=== PATIENT | male | born 1945 | race Caucasian/White ===

== ENCOUNTER 2017-01-21 11:29 | Inpatient (IN) | payer OTHER, MEDICARE ==
--- NOTE | ~2017-01-21 | HP ---
History And Physical [facility] [address] [place]. [address] NAME: SERGIO ROSARIO : 47 STATUS : ADM IN [facility]#: [id number] AGE: 71 ADM/REG DATE : 01/21/17 MR#: [id number] REPORT SERV DATE: 01/21/17 DICTATED BY: NAOMI MATHIS DATE: 01/21/17 REPORT STATUS : Draft TRANSCRIBED BY: MODL DATE: 01/21/17 DATE OF ADMISSION: 01/21/2017 This is a 71-year-old male, who presented to [facility] because of nausea, vomiting, and abdominal pain started yesterday at 4 a.m. The patient reported that his symptoms started this morning at 4 a.m., he vomited three or four times just mostly bile and he was having severe abdominal pain in the whole abdomen. After he came to the emergency room and was given narcotics, initially morphine and then Dilaudid, his pain improved. He denies any chest pain. No shortness of breath. No fever. No headaches. He did not have any constipation or diarrhea. He had a bowel movement yesterday. All 14 systems reviewed and are negative except what is stated in the history of present illness. PAST MEDICAL HISTORY: The patient reported that he had gallbladder surgery on December [address] Rory Spivey at [facility] and since that time, he was having cold-like symptoms. He had a flu shot. He was having mild cough, but the symptoms of pain and nausea started this morning at 4 a.m. His other medical problems include history of polycythemia vera, hypertension, COPD, history of rheumatoid arthritis. He has also gastroesophageal reflux disease. His primary care physician is Dr. Nena Judge at the [facility]. He denies any history of diabetes. No thyroid problems. No history of heart attacks. No strokes. PAST SURGICAL HISTORY: Includes gallbladder surgery on December 05 at [facility] as well as it includes history of appendectomy in 1979. ALLERGIES: NO KNOWN DRUG ALLERGIES. SOCIAL HISTORY: He quit smoking six years ago, used to smoke 1-1/2 to 2 packs a day. He uses alcohol; according to the patient, he says socially 2-3 drinks, maybe twice or three times a week, mostly [place]. No recreational drug use. He lives with his . He has children and grandchildren. FAMILY HISTORY: Mother suddenly, she was healthy before. He does not know what medical problems caused her , she was old. Father had from a duodenal ulcer. HOME MEDICATIONS: Lisinopril, hydroxyurea, calcium, baby aspirin, vitamins, cholesterol medicine, and naproxen which he takes regularly. Pharmacist is going to verify home medication list. PHYSICAL EXAMINATION: GENERAL: Overweight male not in acute distress, resting quietly. VITAL SIGNS: Blood pressure 143/74, temperature 97.8, heart rate 86, respiratory rate 24, oxygen saturation 92% on room air. HEENT: Head atraumatic, normocephalic. Conjunctivae clear. Pupils are equal, reactive to History And Physical [address] [address] NAME: SERGIO ROSARIO : 47 STATUS : ADM IN [facility]#: [id number] AGE: 71 ADM/REG DATE : 01/21/17 MR#: [id number] REPORT SERV DATE: 01/21/17 DICTATED BY: NAOMI MATHIS DATE: 01/21/17 REPORT STATUS : Draft TRANSCRIBED BY: MAX DATE: 01/21/17 light and accommodation. Extraocular muscles are intact. NECK: Supple. Trachea is midline. No supraclavicular or cervical lymphadenopathy. LUNGS: Diminished breath sounds bilaterally. Decreased respiratory effort. CARDIOVASCULAR SYSTEM: Regular rate and rhythm. Point of maximal impulse not displaced. ABDOMEN: Soft. Diminished bowel sounds. There is mild tenderness to palpation in the abdomen diffusely mostly in the mid abdominal area. There is no guarding. No rebound. EXTREMITIES: No clubbing, cyanosis, or edema. SKIN: Normal color and turgor. PSYCHIATRIC: Normal mood and affect. NEUROLOGICAL: Awake alert, oriented to time, place, and person. Muscle strength is 5/5 bilaterally in upper and lower extremities. LABORATORY RESULTS: Sodium 137, potassium 4.7, chloride 98, carbon dioxide 30, BUN 31, creatinine 1.66. Blood sugar 175. Total bilirubin 3.4, alkaline phosphatase 168, ALT 664, AST 723, lipase 95785. White count 7.1, hemoglobin 15.2, hematocrit 44.2, and a platelet count of 181. UA is ordered by emergency room physician, but currently pending. CT of the abdomen without contrast done in the emergency room showed prominent peripancreatic stranding concerning for acute pancreatitis. No organizing peripancreatic collecting abscess seen. There is also some stranding surrounding the duodenum likely secondary inflamed with primary duodenitis less likely given the distribution of edema. Status post cholecystectomy with very minimal trace fluid in the gallbladder fossa likely representing expected postsurgical change in bilateral renal and right hepatic cyst. There is some nodular consolidation in the posterior basilar right lower lobe measuring up to 10-19 mm, suspect this is infectious inflammatory given its appearance, however suggest followup CT scan of the chest in 3 months for further evaluation. Chest x-ray, which was done today did not show any acute cardiopulmonary process. The EKG which was done also in the emergency room showed normal sinus rhythm with a rate of 80. ASSESSMENT AND PLAN: 1. This is a very pleasant 71-year-old male, who presented with nausea, vomiting, and a picture is consistent with acute pancreatitis. His lipase level is very high and taking into consideration his elevated AST and ALT level as well as elevated bilirubin level, I am highly suspicious for gallstone-induced pancreatitis. The patient had gallbladder surgery on December 05. Still there is a possibility of acute gallstone pancreatitis. Emergency room physician Dr. Diaz initially spoke with the patient's surgeon, Dr. Rory Spivey who recommended hospitalist to admit him and consult GI as well as he recommended MRCP to rule out gallstone pancreatitis. We are going to start him on IV fluid hydration as well as we will do symptomatic control of pain with intravenous Dilaudid. We will put him on Protonix for his gastroesophageal reflux disease and we will also cover him with antibiotics intravenously. 2. I will also order fractionated bilirubin level on this patient and we will check his serum amylase and lipase in the morning. 3. Questionable consolidation in the right lower lung. These could be just fluid effusion or could be related to his gallstone-induced pancreatitis. We will give him breathing treatments and antibiotics, Levaquin will help with this as well. 4. Mild acute kidney injury with creatinine being 1.6. We will continue IV fluid hydration and I told the patient that he should not use any nonsteroidal History And Physical [address] [place]. [address] NAME: SERGIO ROSARIO Noemi : 47 STATUS : ADM IN [facility]#: [id number] AGE: 71 ADM/REG DATE : 01/21/17 MR#: [id number] REPORT SERV DATE: 01/21/17 DICTATED BY: NAOMI MATHIS DATE: 01/21/17 REPORT STATUS : Draft TRANSCRIBED BY: MAX DATE: 01/21/17 antiinflammatory. 5. History of alcohol abuse. The patient said that he drinks socially two or three times a week, 2 or 3 drinks. He never had a withdrawal problems. We will check his folate level and we will give him IV thiamine. The patient is assigned to Dr. Page Epps to see tomorrow morning as well as Dr. Joya and Dr. aNir partner of Dr. Rory Spivey will be consulted. /MAX Naomi Mathis M.D. / [id number] CC: Stalin Judge MD
--- NOTE | ~2017-01-21 | CN ---
Consultation Report [facility] [address] [place]. [address] NAME: SERGIO ROSARIO : 47 STATUS : ADM IN [facility]#: [id number] AGE: 71 ADM/REG DATE : 01/21/17 MR#: [id number] REPORT SERV DATE: 01/22/17 DICTATED BY: DAX RAM IV DATE: 01/22/17 REPORT STATUS : Draft TRANSCRIBED BY: MAX DATE: 01/22/17 CRITICAL CARE CONSULT DATE OF CONSULTATION: 01/22/2017 REQUESTING PHYSICIAN: Page Epps M.D. REASON FOR REQUEST: Severe pancreatitis with impending hypercapnic-hypoxemic respiratory failure. HISTORY OF PRESENT ILLNESS: History was obtained from the patient and the records. Mr. Rosario is a 71-year-old male with a history of COPD, hypertension, polycythemia vera, GERD, rheumatoid arthritis status post recent laparoscopic cholecystectomy with acute onset of abdominal pain with findings of pancreatitis, who was moved to the ICU for respiratory distress and worsening abdominal pain. The patient underwent a laparoscopic cholecystectomy on December 04 and . He clinically did well until Friday night when he developed acute onset of periumbilical abdominal pain associated with nausea and vomiting. He has not had a bowel movement in several days. These are associated with chills. There were no fevers, sweats, cough, sputum production, or hemoptysis. The patient presented to the emergency room, where a CT scan demonstrated some peripancreatic stranding consistent with inflammation. He was admitted to the floor and initially given hydration. The patient reportedly had increasing respiratory distress, for which a blood gas was obtained which demonstrated some hypercapnia. Because of concern about the worsening respiratory status and pancreatitis, the hospitalist service requested transfer to the ICU. Upon presentation, the patient was on BiPAP. There were no major stress. He is on 40% FiO2. His fluids have been stopped and was given a diuretic because of decreased urinary output. He is not at home on bronchodilator medications nor is he on supplemental oxygen. He does continue to drink alcohol, though by his report, only six drinks over the last week with two ounces per drink. There was no previous history of known retained gallstones following his surgery. The patient reportedly snores loudly, though is unaware of apneic episodes. Sleep is nonrestorative, and complains of sedentary hypersomnolence. Never undergone evaluation for obstructive sleep apnea. PULMONARY HISTORY: Remarkable for no history of childhood asthma. He carries a diagnosis of adult COPD. He has had pneumonia in the past. He has a 50+ pack-year smoking history, having quit six years ago. 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 He is reportedly up to date on both seasonal Influenza vaccine, as well as the Pneumovax. PAST MEDICAL HISTORY: 1. COPD. Consultation Report [place] [id number] [facility] [place]. [address] NAME: SERGIO ROSARIO : 47 STATUS : ADM IN [facility]#: [id number] AGE: 71 ADM/REG DATE : 01/21/17 MR#: [id number] REPORT SERV DATE: 01/22/17 DICTATED BY: DAX RAM IV DATE: 01/22/17 REPORT STATUS : Draft TRANSCRIBED BY: MAX DATE: 01/22/17 2. Hypertension. 3. Polycythemia vera. 4. Reflux disease. 5. Rheumatoid arthritis. 6. Pancreatitis. SURGERIES: 1. Cholecystectomy. 2. Appendectomy. ALLERGIES: NO KNOWN DRUG ALLERGIES. CURRENT MEDICATIONS: The patient is on calcium 500 mg twice a day, DuoNeb every six hours, folic acid 1 mg daily, guaifenesin 600 mg twice a day, heparin 5000 units q.8 hours, Hydrea 500 mg twice a day, Levaquin 750 mg daily, Flagyl 500 mg twice a day, Protonix 40 mg b.i.d., thiamine 100 mg p.o. daily, and B12 daily. SOCIAL HISTORY: Remarkable for the previous tobacco use as above. Current alcohol use as noted. No illicit drug use. He is and has four sons. FAMILY HISTORY: Remarkable for mother who in a fire. Father who had COPD, hypertension, and duodenal ulcer disease. PHYSICAL EXAMINATION: GENERAL: This is an obese, elderly male, actually appearing younger than stated age, in mild respiratory distress after removal of the BiPAP. VITAL SIGNS: Temperature is 98, pulse is 90, respiratory rate is 24, saturation 94% on 4 L via nasal cannula. Blood pressure is 101/62. HEENT: normocephalic, atraumatic. Extraocular movements are intact. Pupils react to light. Sclerae and conjunctivae normal. He has a nasal cannula currently in place. He has a Mallampati 3 airway with narrowing of the posterior pharyngeal space. NECK: Without any palpable lymphadenopathy or thyromegaly. CHEST: The patient has bibasilar inspiratory crackles. There is an inspiratory and expiratory rhonchi with a prolonged expiratory phase. No current wheezes are noted. CARDIOVASCULAR: The patient has a distant regular S1, S2 with no clear murmur, S3, S4. Carotid upstrokes are 1+. No obvious bruit. Jugular venous pulsations are difficult to elicit secondary to body habitus. He has decreased peripheral pulses. ABDOMEN: Surgical scars are noted. Protuberant. There are hypoactive bowel sounds. There is diffuse tenderness particularly in the periumbilical region. There is no palpable hepatosplenomegaly or masses. EXTREMITIES: Demonstrate chronic venous stasis changes. There is trace to 1+ pretibial edema. There is no cyanosis, clubbing, or palpable cords. NEUROLOGIC: The patient moves all extremities. Strength is 5/5 and sensation is intact to light touch. Consultation Report [place] [id number] [facility] [place]. [address] NAME: SERGIO ROSARIO : 47 STATUS : ADM IN [facility]#: [id number] AGE: 71 ADM/REG DATE : 01/21/17 MR#: [id number] REPORT SERV DATE: 01/22/17 DICTATED BY: DAX RAM IV DATE: 01/22/17 REPORT STATUS : Draft TRANSCRIBED BY: MAX DATE: 01/22/17 LABORATORY DATA: Chest x-ray demonstrates hypoventilatory effort and bibasilar atelectasis. Chest CT scan demonstrates a nodular density at the right base likely inflammatory atelectatic, however, will need to be followed with complete chest CT scan. There is, on CT scan, stranding around the duodenum and pancreas likely most consistent with pancreatitis. CBC: Hemoglobin 14.2, hematocrit 42.8, platelet count was 276,000, and white blood cell count is 30.1. INR is 1.2. Chemistries: Sodium 137, potassium 5.0, chloride 102, bicarb 25, BUN 37, creatinine 1.87, glucose of 138. Lactate is 3.12. Calcium is 6.9. Ionized calcium is 3.76. Bilirubin has gone from 3.4-0.8, alkaline phosphatase from 158 to 111, ALT from 664 to 370, AST from 723 to 188. Amylase was 700. Lipase was 24,615, now down to 4538. Folic acid and B12 were both normal. Blood gas was pH 7.28, pCO2 of 58, pO2 of 63. Urinalysis was unremarkable. ASSESSMENT AND PLAN: 1. Gastrointestinal. Liver functions have markedly improved, so this is most consistent with a passed stone. Magnetic resonance cholangiopancreatography has been ordered. Protonix will be continued. We will follow the transaminases, amylase, and lipase. N.p.o. for now. Dulcolax suppository with no bowel movement. 2. Respiratory. The patient likely has significant chronic obstructive pulmonary disease. We will add Pulmicort and Brovana nebulizers with DuoNeb q.4 hours while awake and q.4 hours as needed. The EzPAP and bilevel positive airway pressure will be changed to 15/7 with a rate of 10 to be used for distress. The patient likely has obstructive sleep apnea and warrants an outpatient sleep evaluation. Oxygen will be titrated to maintain saturations in the 90% to 94% range. The nodules likely inflammatory or atelectatic, however, does not require with his smoking history, outpatient CT scan. 3. Renal. The patient may have acute on chronic renal insufficiency. We will replace the patient's magnesium with 2 g calcium will be replaced per protocol. I will watch the creatinine with hydration. I would recommend a Tello to the patient, particularly to monitor output. If he is unable urinate, phosphate level will be obtained. 4. Infectious disease. I see no reason for antibiotics at this time, so we will discontinue the Levaquin and Flagyl. Procalcitonin level will be obtained. Doubt this is infection. Clarify gastrointestinal prophylactic medication as needed. 5. Hematologic. Heparin subcutaneous for deep vein thrombosis prophylaxis and pneumatic compression stockings. 6. Neurologic. Dilaudid for pain. Zofran p.r.n. Thiamine will be made IV and 200 mg daily. 7. Endocrinologic. Hemoglobin A1c insulin sliding scale has been ordered. Thyroid functions will be obtained. 8. Cardiovascular. Fluid resuscitation with 200 mL an hour. Thank you for consulting us. The patient will be moved to the ICU. We will assume primary care. Consultation Report [facility] [address] [place]. [address] NAME: SERGIO ROSARIO : 47 STATUS : ADM IN PAT#: [id number] AGE: 71 ADM/REG DATE : 01/21/17 MR#: [id number] REPORT SERV DATE: 01/22/17 DICTATED BY: DAX RAM IV DATE: 01/22/17 REPORT STATUS : Draft TRANSCRIBED BY: MODL DATE: 01/22/17 NM/MAX Dax Ram IV, M.D. / [id number] CC: Liliana Latif MD
--- NOTE | ~2017-01-21 | IDS ---
Interim Discharge Summary [facility] [address] [place]. [address] NAME: SERGIO ROSARIO : 47 STATUS : ADM IN [facility]#: [id number] AGE: 71 ADM/REG DATE : 01/21/17 MR#: [id number] REPORT SERV DATE: 01/25/17 DICTATED BY: DAX RAM IV DATE: 01/24/17 REPORT STATUS : Draft TRANSCRIBED BY: MAX DATE: 01/24/17 ADMISSION DATE: 01/21/2017 DISCHARGE DATE: Date of transfer to the ICU was 01/22/2017. Date of transfer back to the hospitalist service was 01/24/2017. DIAGNOSES AT TIME OF TRANSFER: 1. Severe pancreatitis. 2. Hypercapnic/hypoxemic respiratory failure. 3. COPD. 4. Acute kidney injury, improved. 5. Polycythemia vera, on Hydrea. 6. Reflux disease. 7. Electrolyte abnormalities being corrected. CONSULTANTS: There were no new consultants though Gastroenterology continued to follow the patient throughout the hospital course. PROCEDURES: The patient underwent MRCP placement as well as a PICC line placement for transient hypotension. MEDICATIONS: Include Brovana unit dose twice a day, Pulmicort 1 mg twice a day, calcium 500 mg twice a day, DuoNeb q.4 hours while awake and q.4 hours as needed, folic acid 1 mg daily, heparin 5000 units q.8 hours, Hydrea 500 mg twice a day, Protonix 40 mg twice a day, and B12. HOSPITAL COURSE: The patient was admitted to the hospitalist service on the with pancreatitis. The patient developed abdominal pain, the day prior to presentation after having had a laparoscopic cholecystectomy in December. The patient had markedly elevated transaminases as well as amylase and lipase. Because of the patient's increase in respiratory distress and concern about ARDS, the patient was moved to the ICU. The patient transiently required BiPAP; however, that was discontinued. Oxygen saturations have been adequate between 4 and 6 L. The patient initially had IV fluids discontinued and given diuretic; however, IV hydration was resumed at initially 250 mL an hour with lactated Ringer's. The patient initially had minimal urine output with a rise in the creatinine to a high of 2.65; however, with further hydration, that has improved, now down to 1.48 with excellent urine output. He has had difficulties with predominantly low magnesium, low ionized calcium, and low phos which has been replaced. Transaminases have dropped precipitously and have now normalized except for a persistently elevated ALT of 116. The patient had decreased abdominal discomfort with the intermittent use of Dilaudid. It was felt that he was stable for transfer back to the floor. BiPAP has been discontinued. He will be sent back to the hospitalist service. Interim Discharge Summary [address] [place]. [address] NAME: SERGIO ROSARIO : 47 STATUS : ADM IN [facility]#: [id number] AGE: 71 ADM/REG DATE : 01/21/17 MR#: [id number] REPORT SERV DATE: 01/25/17 DICTATED BY: DAX RAM IV DATE: 01/24/17 REPORT STATUS : Draft TRANSCRIBED BY: MAX DATE: 01/24/17 JACK/MAX Dax Ram IV, M.D. / [id number] CC: Liliana Latif MD
--- NOTE | ~2017-01-21 | DS ---
Discharge Summary [facility] [address] [place]. [address] NAME: SERGIO ROSARIO : 47 STATUS : ADM IN PAT#: [id number] AGE: 71 ADM/REG DATE : 01/21/17 MR#: [id number] REPORT SERV DATE: 01/30/17 DICTATED BY: ILYA SCOTT DATE: 01/29/17 REPORT STATUS : Draft TRANSCRIBED BY: MODL DATE: 01/29/17 ADMISSION DATE: 01/21/2017 DISCHARGE DATE: DISCHARGE DIAGNOSES: 1. Acute severe pancreatitis. 2. Status post cholecystectomy. 3. Hypoxic hypercapnic respiratory failure. 4. Acute exacerbation of chronic obstructive pulmonary disease. 5. Acute kidney injury, now resolved. 6. Polycythemia vera. 7. Gastroesophageal reflux disease. 8. Multiple electrolyte and metabolic abnormalities that have been corrected. 9. Elevation in liver function studies which have now normalized. 10.Obesity. 11.Hypertension. CONSULTANTS DURING THIS HOSPITALIZATION: Gastroenterology and Critical Care Pulmonology. INVASIVE PROCEDURES DONE DURING THIS HOSPITALIZATION: None. BRIEF HISTORY OF PRESENT ILLNESS: The patient is a 71-year-old male who recently underwent cholecystectomy and then presented with abdominal pain and developed pancreatitis, so he was admitted. For detailed history and physical exam, please see note dictated by Dr. Marci Harris on 01/21/2017. HOSPITAL COURSE: After being admitted to the hospital, this patient's condition worsened, had to be transferred to the intensive care unit. Please refer to interim summary dictated by Dr. Washington Ram on 01/25/2017. This patient was transitioned to the floor on 01/25/[address] Mckeon took over this patient's care. At that time, this patient was doing well. Once we started feeding him and advancing his diet, he had more pain, so GI was asked to continue seeing him again. This patient continued to improve. We have tapered down his diet back to clear liquid diet. Within the last 24 hours, I have advanced his diet again to full liquid. He is tolerating that, he still complains of significant back pain. This patient also remained on O2. We have continued his nebulized treatments, and we will switch him to inhaled long-acting beta agonist with corticosteroids in the home setting. This patient because of his obesity and hypoxic hypercapnic respiratory failure required O2. We have arranged that in the home setting. He is otherwise ambulatory, and he feels well enough that he wants to go home and recover in the home setting. DISCHARGE DISPOSITION: Home. DISCHARGE ACTIVITY: As tolerated. DISCHARGE DIET: Low-sodium diet. Discharge Summary [place] [address] [place]. [address] NAME: SERGIO ROSARIO : 47 STATUS : ADM IN PAT#: [id number] AGE: 71 ADM/REG DATE : 01/21/17 MR#: [id number] REPORT SERV DATE: 01/30/17 DICTATED BY: ILYA SCOTT DATE: 01/29/17 REPORT STATUS : Draft TRANSCRIBED BY: MAX DATE: 01/29/17 DISCHARGE MEDICATIONS: Tums 500 mg p.o. twice daily, vitamin B12 of 500 mcg twice daily, Creon 24,000 units two caplets before each meal three times daily, Carafate 1 g q.i.d., hydralazine 25 mg p.o. twice daily, Symbicort 160/4.25 two puffs twice daily, Hydrea 500 mg twice daily, Prilosec 40 mg once before breakfast, MiraLAX one packet p.o. twice daily, aspirin 81 mg once daily, Tylenol 500 mg p.o. twice daily p.r.n. vitamin D 1000 units p.o. twice daily p.r.n. and simvastatin 20 mg once at bedtime, hydrocodone 5/325 one tablet q.6 hours p.r.n. for pain #20 with no refills given. DISCHARGE FOLLOWUP: With the [facility] for possible sleep evaluation in the outpatient setting as well. More than 35 minutes spent planning this patient's discharge, reconciling medications, writing prescriptions, discussing hospital care, and followup with the patient and documenting this discharge. OBED/MAX Ilya Scott M.D. / [id number] CC: Liliana Genao MD William Cockerham, M.D. Anthony Sims, M.D.
--- NOTE | ~2017-01-21 | CN ---
Consultation Report [facility] [address] [place]. [address] NAME: SERGIO ROSARIO : 47 STATUS : ADM IN [facility]#: [id number] AGE: 71 ADM/REG DATE : 01/21/17 MR#: [id number] REPORT SERV DATE: 01/27/17 DICTATED BY: VONDA SPANN DATE: 01/26/17 REPORT STATUS : Draft TRANSCRIBED BY: MODL DATE: 01/26/17 SURGICAL CONSULTATION DATE OF CONSULTATION: 01/21/2017 REASON FOR CONSULT: Gallstone pancreatitis. HISTORY OF PRESENT ILLNESS: The patient is a 71-year-old male, with approximately 36 hours ago, began to have abdominal pain with intermittent vomiting. The vomiting had been bilious. He is status post a laparoscopic cholecystectomy with Dr. Rory Spivey on 12/05/2016. The patient reports that he has had multiple bouts of gallbladder problems prior to this. He reports the gallbladder was taken out because of multiple bouts of problems having gallstones in addition to this. REVIEW OF SYSTEMS: A comprehensive review of systems conducted and was negative for any neurological symptoms. However, the patient does have significant medical problems which were listed in his past medical history. LABORATORY DATA: Sodium 137, potassium 4.7, chloride 98, CO2 of 30, BUN 31, creatinine 1.66, glucose 175. Alk phos , T-bilirubin 3.4, ALT 664, AST 723, lipase 24,615. White count 7.1, hemoglobin 15, hematocrit 44, platelets 181. IMAGING: CT abdomen and pelvis shows fat stranding surrounding the pancreas and significant pancreatic edema and inflammation. PHYSICAL EXAMINATION: VITAL SIGNS: Blood pressure 124/64, pulse 88, respirations 18, T-max 98.4. GENERAL: The patient is awake, alert, and oriented. He is in moderate distress. HEENT: Normocephalic, atraumatic. NECK: No cervical nodes are palpated. RESPIRATIONS: Mild increased work of breathing. Mildly tympanic secondary to the patient's COPD. Distant breath sounds. HEART: Mildly tachycardic. Distant heart sounds. No murmurs appreciated at this time. ABDOMEN: Abdomen mildly is distended. No peritoneal sign. Tender to palpation in the epigastric area. EXTREMITIES: 2+ radial pulses bilaterally. Mild 1+ pitting edema in the lower extremities. NEURO: Cranial nerves II through XII appeared to be grossly intact. PAST MEDICAL HISTORY: Includes polycythemia vera, hypertension, COPD, rheumatoid arthritis, and gastroesophageal reflux disease. PAST SURGICAL HISTORY: Includes laparoscopic cholecystectomy back on 12/05/2016 as well as an appendectomy in the past. Consultation Report [address] [place]. [address] NAME: SERGIO ROSARIO : 47 STATUS : ADM IN [facility]#: [id number] AGE: 71 ADM/REG DATE : 01/21/17 MR#: [id number] REPORT SERV DATE: 01/27/17 DICTATED BY: VONDA SPANN DATE: 01/26/17 REPORT STATUS : Draft TRANSCRIBED BY: MAX DATE: 01/26/17 FAMILY HISTORY: Negative for biliary cancers. SOCIAL HISTORY: The patient is a former smoker. He has occasional alcohol. No drug use. MEDICATIONS: Include lisinopril, hydroxyurea, calcium, aspirin, and naproxen. ALLERGIES: THE PATIENT HAS NO KNOWN DRUG ALLERGIES. ASSESSMENT: The patient is a 71-year-old male with pancreatitis, status post laparoscopic cholecystectomy, with an acute kidney injury as well. PLAN: Plan will be to aggressively rehydrate this patient. He has an acute on chronic kidney injury which needs significant intravascular volume expansion. In addition, this patient is status post laparoscopic cholecystectomy with the possibility of retained common bile duct stone. For this, the patient will require an MRCP which has already been started been ordered. It is also possible that the patient's prior gallbladder episodes were actually pancreatitis. This would mean that the patient has recurrent pancreatitis which he is being treated again with symptomatic relief as well as IV fluid rehydration. I do not feel that the patient's pancreatitis is infected at this time and did not likely require IV antibiotics. Surgical consultation will be available as needed, but there is no surgical indication at this time. YURY/MAX Lucho Spann M.D. / [id number] CC: Liliana Marvin MD
--- NOTE | ~2017-01-21 | DS ---
Discharge Summary [facility] [address] [place]. [address] NAME: SERGIO ROSARIO : 47 STATUS : DIS IN PAT#: [id number] AGE: 71 ADM/REG DATE : 01/21/17 MR#: [id number] REPORT SERV DATE: 01/30/17 DICTATED BY: ILYA SCOTT DATE: 01/30/17 REPORT STATUS : Draft TRANSCRIBED BY: MODL DATE: 01/30/17 ADMISSION DATE: 01/21/2017 DISCHARGE DATE: 01/30/2017 ADDENDUM: HOSPITAL COURSE: After assessing the patient in the late afternoon yesterday, this patient felt very anxious, he was shaking, and he did not feel that he could go home due to the weather and could not come back if he needed to come back. He has not had any further issues through the night. We did give him a very small dose of Xanax as needed for his anxiety and that seems to have helped. Today, he is resting in his recliner, feels well enough, tolerated diet, but did not like the hospital food, and he feels that he is ready to go home. No other changes to his medications were made from the previous day's discharge. OBED/MAX Ilya Scott M.D. / [id number] CC: Liliana Geano MD
--- NOTE | ~2017-01-21 | CN ---
Consultation Report [facility] [address] [place]. [address] NAME: SERGIO ROSARIO : 47 STATUS : ADM IN [facility]#: [id number] AGE: 71 ADM/REG DATE : 01/21/17 MR#: [id number] REPORT SERV DATE: 01/22/17 DICTATED BY: ALFONSO BERRIOS DATE: 01/22/17 REPORT STATUS : Draft TRANSCRIBED BY: MODL DATE: 01/22/17 INPATIENT CONSULT NOTE DATE OF CONSULTATION: 01/22/2017 REASON FOR CONSULTATION: Gallstone pancreatitis. HISTORY OF PRESENT ILLNESS: Mr. Rosario is a very pleasant 71-year-old male with a past medical history most significant for prior cholecystectomy and COPD, who presented to the hospital yesterday with complaints of nausea, vomiting, and abdominal pain that started the previous morning. The patient had multiple episodes of bilious vomiting and worsening of his pain. Upon presentation, the patient was noted to have unremarkable vital signs and a normal CBC with a hematocrit of 44. The patient was noted, however, to have elevated BUN of 31, creatinine of 1.6, and an elevated total bilirubin of 3.4, alkaline phosphatase of 168, ALT of 664, AST of 723, and a lipase of 24,615. The patient was admitted and was started on IV fluids initially as well as antibiotics for unclear reasons. Over the course of the evening, the patient developed increasing respiratory distress and was given a dose of Bumex by report and transferred to the CCU for continuous BiPAP. GI was consulted for management of gallstone pancreatitis. REVIEW OF SYSTEMS: All systems reviewed with the patient and were negative aside from what was mentioned in the history of present illness. The patient complains persistent abdominal discomfort, but not as severe as previous. No fevers or chills. No further nausea or vomiting. His main complaint at this point is shortness of breath, which he attributes to his COPD. PAST MEDICAL HISTORY: Includes 1. Status post cholecystectomy. 2. COPD. 3. History of polycythemia vera. 4. Hypertension. 5. COPD. 6. History of rheumatoid arthritis. 7. GERD. FAMILY HISTORY: The patient has no family history of GI-related malignancy. SOCIAL HISTORY: The patient quit smoking approximately six years ago. He does not abuse alcohol, but has several drinks per week. No illicit substances. ALLERGIES: THE PATIENT HAS NO KNOWN DRUG ALLERGIES. OUTPATIENT MEDICATIONS: Include 1. Aspirin 81 mg p.o. daily. 2. Tylenol p.r.n. Consultation Report [address] [place]. [address] NAME: SERGIO ROSARIO : 47 STATUS : ADM IN PAT#: [id number] AGE: 71 ADM/REG DATE : 01/21/17 MR#: [id number] REPORT SERV DATE: 01/22/17 DICTATED BY: ALFONSO BERRIOS DATE: 01/22/17 REPORT STATUS : Draft TRANSCRIBED BY: MAX DATE: 01/22/17 3. Vitamin B12. 4. Tums twice daily. 5. Vitamin D3. 6. Lisinopril/hydrochlorothiazide tablets. 7. Hydroxyurea. 8. Naproxen. 9. Prilosec 40 mg p.o. q.a.m. 10.Zocor. PHYSICAL EXAMINATION: VITAL SIGNS: Most recent vital signs include a temperature of 98.0, with a T-max of 98.4, pulse is 94, blood pressure is 101/62, and saturating 96% on 3 L BiPAP. GENERAL INSPECTION: Reveals an elderly male, sitting in a chair, very dyspneic, and apparently uncomfortable with BiPAP on. HEENT: Head is normocephalic, atraumatic. Sclerae nonicteric. Pupils are equal and round. NECK: Supple without lymphadenopathy. HEART: Heart rate is regular with normal S1, S2. LUNGS: Sounds are clear to auscultation bilaterally with no crackles are heard. No wheezes heard either. However, airflow is a very poor bilaterally. ABDOMEN: Soft with mild to moderate tenderness to palpation in the epigastric area. No active bowel sounds were noted. EXTREMITIES: The patient had no cyanosis, clubbing, or edema. SKIN: No jaundice or rash. NEUROLOGIC: He had no gross motor deficits. PSYCHIATRIC: He was alert and oriented. Mood and affect are appropriate. Judgment appeared to be intact. LABORATORY DATA: Most recent laboratory results include an elevated lactate of 3.1. Most recent CBC showed an elevated white count of 13.1, hemoglobin of 14, hematocrit of 42.8, and a platelet count of a 176,000. Comprehensive metabolic panel demonstrated resolving LFTs with a bilirubin of 0.8, alkaline phosphatase of 111, ALT decreased down to 370, AST decreased down to 188. Lipase decreased down to 4500. Electrolytes were unremarkable. BUN was still elevated at 37, which is rising compared to last night. Creatinine is 1.87, which is also worsening. Chest x-ray was reviewed and showed question of atelectasis versus mild congestion at the bases otherwise normal. The patient did have suggestion of cardiomegaly. CT of the abdomen was reviewed personally by myself, which showed no evidence of biliary obstructions. Common bile duct was normal in diameter. Gallbladder was not present. There was suggestion of haziness around the head of the pancreas suggestion of acute pancreatitis. ASSESSMENT AND PLAN: Mr. Rosario is a pleasant 71-year-old male with no significant past medical history, who presents with complaints of nausea, vomiting, and abdominal pain and was found to have a flare of acute pancreatitis that is almost certainly biliary in origin. Consultation Report [place] [id number] [facility] [place]. [address] NAME: SERGIO ROSARIO : 47 STATUS : ADM IN [facility]#: [id number] AGE: 71 ADM/REG DATE : 01/21/17 MR#: [id number] REPORT SERV DATE: 01/22/17 DICTATED BY: ALFONSO BERRIOS DATE: 01/22/17 REPORT STATUS : Draft TRANSCRIBED BY: MODL DATE: 01/22/17 The patient has resolving LFTs, suggestion of a passed stone, although this will be confirmed with MRI at some point in the near future. We would continue monitoring LFTs for now. At the present time, I would highly recommend continued aggressive fluid resuscitation to help avoid the development of pancreatic necrosis. The patient needs continued fluids at a minimum of 150 to 200 mL an hour of either normal saline or lactated Ringer's. The patient's hematocrit and BUN need to be monitored to assure a downtrend, which would suggest adequate fluid resuscitation. At this point of the patient's hospitalization, his respiratory status should be a secondary concern with intubation for respiratory distress being a better option than an adequate fluid resuscitation and risking the development of necrosis. Thank you very much for allowing me to participate in Mr. Rosario's care. We will continue to follow along with you closely. Please call with any questions, concerns, or significant developments . BEATRIZ/MODL Alfonso Berrios MD / [id number] CC: Liliana Latif MD
[~2017-01-21 11:29] MED LIST: ALEVE220 MG PO; ASAB PO; B12250T PO; CALGLUCTAB PO; HYDREA PO; HYDROXOCOBALAMIN; PRILO PO; VITAMIN D31000 UNIT PO; ZOCOR40 PO
[2017-01-21 11:46] LABS: BASOPHILS 0 %; EOSINOPHILS 0.1 %; EOSINOPHILS ABSOLUTE 0.01 10/3/uL (0.0-0.53); HEMATOCRIT 44.2 % (40.0-51.0); HEMOGLOBIN 15.2 g/dL (13.6-17.8); IMMATURE GRANULOCYTES 0.1 %; IMMATURE GRANULOCYTES ABSOLUTE 0.01 10/3/uL (0.0-0.11); LYMPHOCYTES 7.2 %; LYMPHOCYTES ABSOLUTE 0.51 10/3/uL (0.67-4.30); MEAN CORPUS HGB CONC 34.4 g/dL (32.0-36.0); MEAN CORPUSCULAR HEMOGLOB 38.9 pg (26.0-34.0); MEAN PLATELET VOLUME 9.9 fL (9.2-13.0); MONOCYTES 3.4 %; MONOCYTES ABSOLUTE 0.24 10/3/uL (0.21-1.20); NEUTROPHILS 89.2 %; NEUTROPHILS ABSOLUTE 6.28 10/3/uL (2.02-8.40); PLATELET COUNT 181 10/3/uL (150-400); RBC DISTRIBUTION WIDTH 13.2 % (12.0-16.0); RED CELL COUNT 3.91 10/6/uL (4.7-6.1); WHITE BLOOD CELLS 7.1 10/3/uL (4.5-10.5)
[2017-01-21 11:47] LABS: MANUAL DIFF NO %
[2017-01-21 12:05] LABS: PLATELET ESTIMATE ADQ (ADEQUATE); RBC MORPHOLOGY ABN (NORMAL); STOMATOCYTES 1+ (3-10/OIF) (0-2/OIF)
[2017-01-21 12:07] LABS: ALBUMIN 3.6 G/DL (3.5-5.0); ALKALINE PHOSPHATASE 168 U/L (45-117); BUN (BLOOD UREA NITROGEN) 31 MG/DL (6-23); CALCIUM, SERUM 8.2 MG/DL (8.5-10.4); CHLORIDE, SERUM 98 MMOL/L (96-112); CO2 (CARBON DIOXIDE) 30 MMOL/L (24-34); CREATININE 1.66 MG/DL (0.70-1.30); GFR AFRICAN AMERICAN 48 ML/MIN (>=60); GFR NON AFRICAN AMERICAN 41 ML/MIN (>=60); GLOBULIN 3.5 G/DL (2.5-4.1); GLUCOSE, SERUM 175 MG/DL (60-99); POTASSIUM, SERUM 4.7 MMOL/L (3.5-5.3); SGOT(AST) 723 U/L (5-40); SGPT(ALT) 664 U/L (5-65); SODIUM, SERUM 137 MMOL/L (135-148); TOTAL BILIRUBIN 3.4 MG/DL (0-1.2); TOTAL PROTEIN 7.1 G/DL (6.0-8.5)
[2017-01-21] MEDS ORDERED: ASAB PO (13:56)
[2017-01-21] MEDS ORDERED: B12250T PO (13:57)
[2017-01-21] MEDS ORDERED: ACET500CAP PO (13:57)
[2017-01-21] MEDS ORDERED: TUMSROLL PO (13:59)
[2017-01-21] MEDS ORDERED: VITAMIN D31000 UNIT PO (14:00)
[2017-01-21] MEDS ORDERED: PRINZIDE1 TA1 PO (14:01)
[2017-01-21] MEDS ORDERED: HYDREA PO (14:01)
[2017-01-21] MEDS ORDERED: ZOCOR20 PO (14:02)
[2017-01-21] MEDS ORDERED: NAP375 PO (14:02)
[2017-01-21] MEDS ORDERED: PRILOSEC40 MG PO (14:02)
[2017-01-21 16:41] LABS: INFLUENZA A SCREEN NEGATIVE (NEGATIVE); INFLUENZA B SCREEN NEGATIVE (NEGATIVE)
[2017-01-21 17:04] LABS: ASCORBIC ACID (UR NOT ORDER) NEG (NEG); BILIRUBIN, URINE NEGATIVE (NEG); KETONE, URINE NEGATIVE (NEG); LEUKOCYTE ESTERASE(NOT OR NEG (NEG); WBC (NOT ORDERED) (RFLEX) 3 (0-5)
[2017-01-21 17:52] LABS: FOLATE 9.6 NG/ML (>5.2)
[2017-01-22 05:25] LABS: INSTRUMENT SERIAL # 8083; PCO2 (CO2 TENSION) 58 MMHG (35-45); pH 7.28 (7.37-7.43)
[2017-01-22 05:26] LABS: ALLENS TEST Pos; BE (BASE EXCESS) -1.5 MEQ/L (0 +/- 2.5); CARBOXYHEMOGLOBIN 1.3 % (0-3); DEVICE NC; HCO3 (ACTUAL BICARBONATE) 26.5 MEQ/L (23-27); HEMOBLOGIN CONTENT 15.4 G/DL (14-18); METHEMOGLOBIN 0.2 % (0-3); O2 CONTENT 19.4 VOL% (18-24); OPERATOR ID 334499; PO2 (O2 TENSION) 63 MMHG (79-93); SAMPLE Arterial
[2017-01-22 07:09] LABS: BASOPHILS 0 %; EOSINOPHILS 0 %; HEMATOCRIT 42.8 % (40.0-51.0); HEMOGLOBIN 14.2 g/dL (13.6-17.8); IMMATURE GRANULOCYTES 0.2 %; IMMATURE GRANULOCYTES ABSOLUTE 0.03 10/3/uL (0.0-0.11); LYMPHOCYTES 2.7 %; LYMPHOCYTES ABSOLUTE 0.36 10/3/uL (0.67-4.30); MEAN CORPUS HGB CONC 33.2 g/dL (32.0-36.0); MEAN CORPUSCULAR HEMOGLOB 38.5 pg (26.0-34.0); MONOCYTES 7.5 %; MONOCYTES ABSOLUTE 0.99 10/3/uL (0.21-1.20); NEUTROPHILS 89.6 %; NEUTROPHILS ABSOLUTE 11.76 10/3/uL (2.02-8.40); PLATELET COUNT 176 10/3/uL (150-400); RBC DISTRIBUTION WIDTH 13.3 % (12.0-16.0); RED CELL COUNT 3.69 10/6/uL (4.7-6.1)
[2017-01-22 07:11] LABS: MANUAL DIFF NO %; WHITE BLOOD CELLS 13.1 10/3/uL (4.5-10.5)
[2017-01-22 07:23] LABS: A/G RATIO 0.9 (0.7-1.9); CHLORIDE, SERUM 102 MMOL/L (96-112); CREATININE 1.87 MG/DL (0.70-1.30); DIRECT BILIRUBIN 0.2 MG/DL (0.0-0.4); GFR AFRICAN AMERICAN 41 ML/MIN (>=60); GFR NON AFRICAN AMERICAN 36 ML/MIN (>=60); GLOBULIN 3.5 G/DL (2.5-4.1); SGOT(AST) 188 U/L (5-40); SGPT(ALT) 370 U/L (5-65); SODIUM, SERUM 137 MMOL/L (135-148); TOTAL PROTEIN 6.5 G/DL (6.0-8.5)
[2017-01-22 07:24] LABS: BUN (BLOOD UREA NITROGEN) 37 MG/DL (6-23); CALCIUM, SERUM 6.9 MG/DL (8.5-10.4); CO2 (CARBON DIOXIDE) 25 MMOL/L (24-34); GLUCOSE, SERUM 138 MG/DL (60-99); INDIRECT BILIRUBIN(NOT ORDER) 0.6 MG/DL (0.1-0.9); TOTAL BILIRUBIN 0.8 MG/DL (0-1.2)
[2017-01-22 07:25] LABS: ALKALINE PHOSPHATASE 111 U/L (45-117)
[2017-01-22 07:29] LABS: PLATELET ESTIMATE ADQ (ADEQUATE)
[2017-01-22 09:33] LABS: INTERNATIONAL NORMAL RATI 1.2 UNITS (-); PROTIME (NOT ORD) 14.6 SEC (12.0-14.5)
[2017-01-22 10:14] LABS: FOLATE 8.6 NG/ML (>5.2)
[2017-01-22 13:46] LABS: FREE T4 1.19 NG/DL (0.76-1.46); PHOSPHORUS, SERUM 3.3 MG/DL (2.5-4.5); PROSTATIC SPECIFIC AG 1.51 NG/ML (0.0-6.5); ULTRASENSITIVE TSH 1.76 MCIU/ML (0.358-3.740)
[2017-01-22 14:02] LABS: CALCIUM IONIZED 3.83 MG/DL (3.80-4.80)
[2017-01-22 15:20] LABS: BASOPHILS 0 %; EOSINOPHILS 0 %; HEMATOCRIT 44.5 % (40.0-51.0); HEMOGLOBIN 14.4 g/dL (13.6-17.8); IMMATURE GRANULOCYTES 0.1 %; IMMATURE GRANULOCYTES ABSOLUTE 0.02 10/3/uL (0.0-0.11); LYMPHOCYTES 2.4 %; LYMPHOCYTES ABSOLUTE 0.37 10/3/uL (0.67-4.30); MEAN CORPUS HGB CONC 32.4 g/dL (32.0-36.0); MEAN CORPUSCULAR HEMOGLOB 38.2 pg (26.0-34.0); MEAN PLATELET VOLUME 10.3 fL (9.2-13.0); MONOCYTES 7.1 %; MONOCYTES ABSOLUTE 1.12 10/3/uL (0.21-1.20); NEUTROPHILS 90.4 %; NEUTROPHILS ABSOLUTE 14.18 10/3/uL (2.02-8.40); PLATELET COUNT 175 10/3/uL (150-400); RBC DISTRIBUTION WIDTH 13.4 % (12.0-16.0); RED CELL COUNT 3.77 10/6/uL (4.7-6.1); WHITE BLOOD CELLS 15.7 10/3/uL (4.5-10.5)
[2017-01-22 15:24] LABS: MANUAL DIFF NO %
[2017-01-22 15:42] LABS: ALBUMIN 3.2 G/DL (3.5-5.0); ALKALINE PHOSPHATASE 114 U/L (45-117); BUN (BLOOD UREA NITROGEN) 41 MG/DL (6-23); CHLORIDE, SERUM 102 MMOL/L (96-112); CO2 (CARBON DIOXIDE) 25 MMOL/L (24-34); CREATININE 2.33 MG/DL (0.70-1.30); GFR AFRICAN AMERICAN 32 ML/MIN (>=60); GFR NON AFRICAN AMERICAN 27 ML/MIN (>=60); GLOBULIN 3.1 G/DL (2.5-4.1); GLUCOSE, SERUM 134 MG/DL (60-99); POTASSIUM, SERUM 4.6 MMOL/L (3.5-5.3); SGOT(AST) 138 U/L (5-40); SGPT(ALT) 331 U/L (5-65); SODIUM, SERUM 141 MMOL/L (135-148); TOTAL BILIRUBIN 0.7 MG/DL (0-1.2); TOTAL PROTEIN 6.3 G/DL (6.0-8.5)
[2017-01-22 15:43] LABS: CALCIUM, SERUM 6.6 MG/DL (8.5-10.4)
[2017-01-22 16:03] LABS: PROCALCITONIN 2.92 ng/mL (<0.5)
[2017-01-22 21:26] LABS: GLYCOHEMOGLOBIN (HbA1c) 5.2 % (4.7-6.1)
[2017-01-23 05:15] LABS: BASOPHILS 0 %; EOSINOPHILS 0.1 %; EOSINOPHILS ABSOLUTE 0.01 10/3/uL (0.0-0.53); HEMOGLOBIN 12.9 g/dL (13.6-17.8); IMMATURE GRANULOCYTES 0.5 %; IMMATURE GRANULOCYTES ABSOLUTE 0.07 10/3/uL (0.0-0.11); LYMPHOCYTES 4.2 %; LYMPHOCYTES ABSOLUTE 0.56 10/3/uL (0.67-4.30); MEAN CORPUS HGB CONC 32.3 g/dL (32.0-36.0); MEAN CORPUSCULAR HEMOGLOB 38.7 pg (26.0-34.0); MEAN CORPUSCULAR VOLUME 119.8 fL (80-100); MEAN PLATELET VOLUME 9.8 fL (9.2-13.0); MONOCYTES 4.7 %; MONOCYTES ABSOLUTE 0.63 10/3/uL (0.21-1.20); NEUTROPHILS 90.5 %; NEUTROPHILS ABSOLUTE 12.04 10/3/uL (2.02-8.40); PLATELET COUNT 154 10/3/uL (150-400); RBC DISTRIBUTION WIDTH 13.7 % (12.0-16.0); RED CELL COUNT 3.33 10/6/uL (4.7-6.1); WHITE BLOOD CELLS 13.3 10/3/uL (4.5-10.5)
[2017-01-23 05:23] LABS: INTERNATIONAL NORMAL RATI 1.3 UNITS (-)
[2017-01-23 05:32] LABS: HEMATOCRIT 39.9 % (40.0-51.0)
[2017-01-23 05:33] LABS: A/G RATIO 0.8 (0.7-1.9); ALBUMIN 2.8 G/DL (3.5-5.0); CHLORIDE, SERUM 105 MMOL/L (96-112); CO2 (CARBON DIOXIDE) 23 MMOL/L (24-34); CREATININE 2.65 MG/DL (0.70-1.30); GFR AFRICAN AMERICAN 27 ML/MIN (>=60); GFR NON AFRICAN AMERICAN 23 ML/MIN (>=60); GLOBULIN 3.7 G/DL (2.5-4.1); GLUCOSE, SERUM 123 MG/DL (60-99); PHOSPHORUS, SERUM 3.1 MG/DL (2.5-4.5); POTASSIUM, SERUM 4.7 MMOL/L (3.5-5.3); SGOT(AST) 62 U/L (5-40); SGPT(ALT) 204 U/L (5-65); SODIUM, SERUM 140 MMOL/L (135-148); TOTAL PROTEIN 6.5 G/DL (6.0-8.5)
[2017-01-23 05:33] LABS: MANUAL DIFF NO %
[2017-01-23 05:35] LABS: ALKALINE PHOSPHATASE 84 U/L (45-117); BUN (BLOOD UREA NITROGEN) 48 MG/DL (6-23); CALCIUM, SERUM 6.4 MG/DL (8.5-10.4); TOTAL BILIRUBIN 1.2 MG/DL (0-1.2)
[2017-01-23 06:16] LABS: PLATELET ESTIMATE ADQ (ADEQUATE); RBC MORPHOLOGY ABN (NORMAL)
[2017-01-23 16:15] LABS: BASOPHILS 0 %; EOSINOPHILS 0 %; HEMATOCRIT 38.7 % (40.0-51.0); HEMOGLOBIN 12.5 g/dL (13.6-17.8); IMMATURE GRANULOCYTES 0.6 %; IMMATURE GRANULOCYTES ABSOLUTE 0.06 10/3/uL (0.0-0.11); LYMPHOCYTES 3.8 %; LYMPHOCYTES ABSOLUTE 0.39 10/3/uL (0.67-4.30); MANUAL DIFF NO %; MEAN CORPUS HGB CONC 32.3 g/dL (32.0-36.0); MEAN CORPUSCULAR HEMOGLOB 38.7 pg (26.0-34.0); MEAN CORPUSCULAR VOLUME 119.8 fL (80-100); MEAN PLATELET VOLUME 9.8 fL (9.2-13.0); MONOCYTES 3.8 %; MONOCYTES ABSOLUTE 0.39 10/3/uL (0.21-1.20); NEUTROPHILS 91.8 %; NEUTROPHILS ABSOLUTE 9.36 10/3/uL (2.02-8.40); PLATELET COUNT 147 10/3/uL (150-400); RBC DISTRIBUTION WIDTH 13.5 % (12.0-16.0); RED CELL COUNT 3.23 10/6/uL (4.7-6.1); WHITE BLOOD CELLS 10.2 10/3/uL (4.5-10.5)
[2017-01-23 16:30] LABS: A/G RATIO 0.6 (0.7-1.9); ALBUMIN 2.4 G/DL (3.5-5.0); ALKALINE PHOSPHATASE 72 U/L (45-117); BUN (BLOOD UREA NITROGEN) 47 MG/DL (6-23); CALCIUM, SERUM 6.3 MG/DL (8.5-10.4); CHLORIDE, SERUM 106 MMOL/L (96-112); CO2 (CARBON DIOXIDE) 26 MMOL/L (24-34); CREATININE 2.17 MG/DL (0.70-1.30); GFR AFRICAN AMERICAN 34 ML/MIN (>=60); GFR NON AFRICAN AMERICAN 30 ML/MIN (>=60); GLOBULIN 3.9 G/DL (2.5-4.1); GLUCOSE, SERUM 116 MG/DL (60-99); POTASSIUM, SERUM 4.8 MMOL/L (3.5-5.3); SGOT(AST) 43 U/L (5-40); SGPT(ALT) 161 U/L (5-65); SODIUM, SERUM 140 MMOL/L (135-148); TOTAL BILIRUBIN 0.5 MG/DL (0-1.2); TOTAL PROTEIN 6.3 G/DL (6.0-8.5)
[2017-01-23 16:34] LABS: PLATELET ESTIMATE SLT DEC (ADEQUATE)
[2017-01-24 04:34] LABS: A/G RATIO 0.6 (0.7-1.9); ALBUMIN 2.1 G/DL (3.5-5.0); ALKALINE PHOSPHATASE 63 U/L (45-117); CHLORIDE, SERUM 107 MMOL/L (96-112); CO2 (CARBON DIOXIDE) 25 MMOL/L (24-34); GLOBULIN 3.8 G/DL (2.5-4.1); GLUCOSE, SERUM 112 MG/DL (60-99); POTASSIUM, SERUM 4.5 MMOL/L (3.5-5.3); SGOT(AST) 32 U/L (5-40); SGPT(ALT) 116 U/L (5-65); SODIUM, SERUM 141 MMOL/L (135-148); TOTAL BILIRUBIN 0.5 MG/DL (0-1.2); TOTAL PROTEIN 5.9 G/DL (6.0-8.5)
[2017-01-24 04:35] LABS: BUN (BLOOD UREA NITROGEN) 37 MG/DL (6-23); CALCIUM, SERUM 6.6 MG/DL (8.5-10.4); CREATININE 1.48 MG/DL (0.70-1.30); GFR AFRICAN AMERICAN 55 ML/MIN (>=60); GFR NON AFRICAN AMERICAN 47 ML/MIN (>=60); PHOSPHORUS, SERUM 2.1 MG/DL (2.5-4.5)
[2017-01-24 17:06] LABS: BASOPHILS 0 %; EOSINOPHILS 0.2 %; EOSINOPHILS ABSOLUTE 0.01 10/3/uL (0.0-0.53); HEMATOCRIT 37.1 % (40.0-51.0); IMMATURE GRANULOCYTES ABSOLUTE 0.06 10/3/uL (0.0-0.11); LYMPHOCYTES 6.9 %; LYMPHOCYTES ABSOLUTE 0.41 10/3/uL (0.67-4.30); MANUAL DIFF NO %; MEAN CORPUS HGB CONC 32.3 g/dL (32.0-36.0); MEAN CORPUSCULAR HEMOGLOB 37.6 pg (26.0-34.0); MEAN CORPUSCULAR VOLUME 116.3 fL (80-100); MEAN PLATELET VOLUME 9.3 fL (9.2-13.0); MONOCYTES 8.5 %; NEUTROPHILS 83.4 %; NEUTROPHILS ABSOLUTE 4.93 10/3/uL (2.02-8.40); PLATELET COUNT 150 10/3/uL (150-400); RBC DISTRIBUTION WIDTH 13.3 % (12.0-16.0); RED CELL COUNT 3.19 10/6/uL (4.7-6.1); WHITE BLOOD CELLS 5.9 10/3/uL (4.5-10.5)
[2017-01-24 17:20] LABS: A/G RATIO 0.5 (0.7-1.9); ALBUMIN 2.1 G/DL (3.5-5.0); ALKALINE PHOSPHATASE 61 U/L (45-117); CALCIUM, SERUM 7.2 MG/DL (8.5-10.4); CHLORIDE, SERUM 105 MMOL/L (96-112); CO2 (CARBON DIOXIDE) 28 MMOL/L (24-34); CREATININE 1.21 MG/DL (0.70-1.30); GFR AFRICAN AMERICAN 70 ML/MIN (>=60); GFR NON AFRICAN AMERICAN 60 ML/MIN (>=60); GLOBULIN 4.2 G/DL (2.5-4.1); GLUCOSE, SERUM 112 MG/DL (60-99); POTASSIUM, SERUM 4.7 MMOL/L (3.5-5.3); SGOT(AST) 29 U/L (5-40); SGPT(ALT) 97 U/L (5-65); SODIUM, SERUM 140 MMOL/L (135-148); TOTAL BILIRUBIN 0.5 MG/DL (0-1.2); TOTAL PROTEIN 6.3 G/DL (6.0-8.5)
[2017-01-24 17:21] LABS: BUN (BLOOD UREA NITROGEN) 25 MG/DL (6-23)
[2017-01-25 04:36] LABS: BASOPHILS 0 %; EOSINOPHILS 0.2 %; EOSINOPHILS ABSOLUTE 0.01 10/3/uL (0.0-0.53); HEMATOCRIT 35.4 % (40.0-51.0); HEMOGLOBIN 11.6 g/dL (13.6-17.8); IMMATURE GRANULOCYTES 1.1 %; IMMATURE GRANULOCYTES ABSOLUTE 0.05 10/3/uL (0.0-0.11); LYMPHOCYTES 10.5 %; MEAN CORPUS HGB CONC 32.8 g/dL (32.0-36.0); MEAN CORPUSCULAR HEMOGLOB 38.3 pg (26.0-34.0); MEAN CORPUSCULAR VOLUME 116.8 fL (80-100); MEAN PLATELET VOLUME 9.9 fL (9.2-13.0); MONOCYTES 6.7 %; MONOCYTES ABSOLUTE 0.32 10/3/uL (0.21-1.20); NEUTROPHILS 81.5 %; NEUTROPHILS ABSOLUTE 3.87 10/3/uL (2.02-8.40); PLATELET COUNT 142 10/3/uL (150-400); RBC DISTRIBUTION WIDTH 13.4 % (12.0-16.0); RED CELL COUNT 3.03 10/6/uL (4.7-6.1); WHITE BLOOD CELLS 4.8 10/3/uL (4.5-10.5)
[2017-01-25 04:37] LABS: MANUAL DIFF NO %
[2017-01-25 04:56] LABS: PLATELET ESTIMATE SLT DEC (ADEQUATE); TEARDROP SHAPED RBCS OCC (0-2/OIF)
[2017-01-25 05:11] LABS: A/G RATIO 0.5 (0.7-1.9); ALBUMIN 1.9 G/DL (3.5-5.0); ALKALINE PHOSPHATASE 55 U/L (45-117); CALCIUM, SERUM 7.2 MG/DL (8.5-10.4); CHLORIDE, SERUM 105 MMOL/L (96-112); CREATININE 0.91 MG/DL (0.70-1.30); GFR AFRICAN AMERICAN 99 ML/MIN (>=60); GFR NON AFRICAN AMERICAN 85 ML/MIN (>=60); GLOBULIN 4.1 G/DL (2.5-4.1); GLUCOSE, SERUM 104 MG/DL (60-99); PHOSPHORUS, SERUM 1.8 MG/DL (2.5-4.5); SGPT(ALT) 79 U/L (5-65); SODIUM, SERUM 140 MMOL/L (135-148); TOTAL BILIRUBIN 0.9 MG/DL (0-1.2)
[2017-01-25 05:16] LABS: BUN (BLOOD UREA NITROGEN) 20 MG/DL (6-23); CO2 (CARBON DIOXIDE) 23 MMOL/L (24-34)
[2017-01-25 05:20] LABS: POTASSIUM, SERUM 5.2 MMOL/L (3.5-5.3); SGOT(AST) 37 U/L (5-40)
[2017-01-25 16:24] LABS: HEMATOCRIT 34.1 % (40.0-51.0); HEMOGLOBIN 11.4 g/dL (13.6-17.8); MEAN CORPUS HGB CONC 33.4 g/dL (32.0-36.0); MEAN CORPUSCULAR HEMOGLOB 39.6 pg (26.0-34.0); MEAN CORPUSCULAR VOLUME 118.4 fL (80-100); MEAN PLATELET VOLUME 9.5 fL (9.2-13.0); PLATELET COUNT 127 10/3/uL (150-400); RBC DISTRIBUTION WIDTH 13.2 % (12.0-16.0); RED CELL COUNT 2.88 10/6/uL (4.7-6.1); WHITE BLOOD CELLS 3.7 10/3/uL (4.5-10.5)
[2017-01-25 16:27] LABS: MANUAL DIFF YES %
[2017-01-25 16:45] LABS: A/G RATIO 0.5 (0.7-1.9); ALBUMIN 1.9 G/DL (3.5-5.0); ALKALINE PHOSPHATASE 48 U/L (45-117); BUN (BLOOD UREA NITROGEN) 19 MG/DL (6-23); CALCIUM, SERUM 7.4 MG/DL (8.5-10.4); CHLORIDE, SERUM 102 MMOL/L (96-112); CREATININE 0.91 MG/DL (0.70-1.30); GFR AFRICAN AMERICAN 99 ML/MIN (>=60); GFR NON AFRICAN AMERICAN 85 ML/MIN (>=60); GLOBULIN 3.7 G/DL (2.5-4.1); GLUCOSE, SERUM 92 MG/DL (60-99); POTASSIUM, SERUM 4.7 MMOL/L (3.5-5.3); SGOT(AST) 23 U/L (5-40); SGPT(ALT) 59 U/L (5-65); SODIUM, SERUM 137 MMOL/L (135-148); TOTAL BILIRUBIN 0.7 MG/DL (0-1.2); TOTAL PROTEIN 5.6 G/DL (6.0-8.5)
[2017-01-25 16:46] LABS: CO2 (CARBON DIOXIDE) 28 MMOL/L (24-34)
[2017-01-25 16:55] LABS: BAND NEUTROPHILS 1 %; LYMPHOCYTES 2 %; LYMPHOCYTES ABSOLUTE (CALC) 0.07 10/3/uL (0.67-4.30); MONOCYTES 6 %; MONOCYTES ABSOLUTE (CALC) 0.22 10/3/uL (0.21-1.20); SEGMENTED NEUTROPHIL (0) 91 %; TOTAL NUCLEATED CELLS 100
[2017-01-26 04:24] LABS: HEMATOCRIT 34.1 % (40.0-51.0); HEMOGLOBIN 11.3 g/dL (13.6-17.8); MEAN CORPUS HGB CONC 33.1 g/dL (32.0-36.0); MEAN CORPUSCULAR HEMOGLOB 38.8 pg (26.0-34.0); MEAN CORPUSCULAR VOLUME 117.2 fL (80-100); PLATELET COUNT 132 10/3/uL (150-400); RED CELL COUNT 2.91 10/6/uL (4.7-6.1); WHITE BLOOD CELLS 4.1 10/3/uL (4.5-10.5)
[2017-01-26 04:25] LABS: MANUAL DIFF YES %
[2017-01-26 04:40] LABS: A/G RATIO 0.5 (0.7-1.9); ALBUMIN 1.8 G/DL (3.5-5.0); ALKALINE PHOSPHATASE 46 U/L (45-117); BUN (BLOOD UREA NITROGEN) 17 MG/DL (6-23); CALCIUM, SERUM 7.9 MG/DL (8.5-10.4); CHLORIDE, SERUM 102 MMOL/L (96-112); CO2 (CARBON DIOXIDE) 28 MMOL/L (24-34); CREATININE 0.91 MG/DL (0.70-1.30); GFR AFRICAN AMERICAN 99 ML/MIN (>=60); GFR NON AFRICAN AMERICAN 85 ML/MIN (>=60); GLOBULIN 3.8 G/DL (2.5-4.1); PHOSPHORUS, SERUM 1.7 MG/DL (2.5-4.5); POTASSIUM, SERUM 4.5 MMOL/L (3.5-5.3); SGOT(AST) 20 U/L (5-40); SGPT(ALT) 50 U/L (5-65); SODIUM, SERUM 138 MMOL/L (135-148); TOTAL BILIRUBIN 0.5 MG/DL (0-1.2); TOTAL PROTEIN 5.6 G/DL (6.0-8.5)
[2017-01-26 04:43] LABS: GLUCOSE, SERUM 123 MG/DL (60-99)
[2017-01-26 04:47] LABS: BAND NEUTROPHILS 6 %; LYMPHOCYTES 10 %; LYMPHOCYTES ABSOLUTE (CALC) 0.41 10/3/uL (0.67-4.30); MONOCYTES 2 %; MONOCYTES ABSOLUTE (CALC) 0.08 10/3/uL (0.21-1.20); NEUTROPHILS ABSOLUTE (CALC) 3.61 10/3/uL (2.02-8.40); PLATELET ESTIMATE SLT DEC (ADEQUATE); SEGMENTED NEUTROPHIL (0) 82 %; TOTAL NUCLEATED CELLS 100
[2017-01-26 16:30] LABS: HEMATOCRIT 35.9 % (40.0-51.0); HEMOGLOBIN 11.9 g/dL (13.6-17.8); MEAN CORPUS HGB CONC 33.1 g/dL (32.0-36.0); MEAN CORPUSCULAR VOLUME 117.7 fL (80-100); MEAN PLATELET VOLUME 9.6 fL (9.2-13.0); PLATELET COUNT 139 10/3/uL (150-400); RBC DISTRIBUTION WIDTH 13.2 % (12.0-16.0); RED CELL COUNT 3.05 10/6/uL (4.7-6.1); WHITE BLOOD CELLS 4.3 10/3/uL (4.5-10.5)
[2017-01-26 16:32] LABS: MANUAL DIFF YES %
[2017-01-26 16:55] LABS: ANISOCYTOSIS 1+ (5-10/OIF) (0-5/OIF); BAND NEUTROPHILS 1 %; LYMPHOCYTES 5 %; LYMPHOCYTES ABSOLUTE (CALC) 0.22 10/3/uL (0.67-4.30); MONOCYTES 9 %; MONOCYTES ABSOLUTE (CALC) 0.39 10/3/uL (0.21-1.20); PLATELET ESTIMATE SLT DEC (ADEQUATE); SEGMENTED NEUTROPHIL (0) 85 %; TOTAL NUCLEATED CELLS 100
[2017-01-26 17:26] LABS: ALBUMIN 2.1 G/DL (3.5-5.0); BUN (BLOOD UREA NITROGEN) 15 MG/DL (6-23); CALCIUM, SERUM 7.8 MG/DL (8.5-10.4); CHLORIDE, SERUM 99 MMOL/L (96-112); CREATININE 1.05 MG/DL (0.70-1.30); GFR AFRICAN AMERICAN 83 ML/MIN (>=60); GFR NON AFRICAN AMERICAN 72 ML/MIN (>=60); GLUCOSE, SERUM 124 MG/DL (60-99); POTASSIUM, SERUM 5.1 MMOL/L (3.5-5.3); SGOT(AST) 35 U/L (5-40); SGPT(ALT) 51 U/L (5-65); SODIUM, SERUM 141 MMOL/L (135-148); TOTAL BILIRUBIN 0.7 MG/DL (0-1.2); TOTAL PROTEIN 5.1 G/DL (6.0-8.5)
[2017-01-26 17:30] LABS: A/G RATIO 0.7 (0.7-1.9); ALKALINE PHOSPHATASE 56 U/L (45-117); CO2 (CARBON DIOXIDE) 33 MMOL/L (24-34)
[2017-01-27 04:57] LABS: HEMATOCRIT 35.1 % (40.0-51.0); HEMOGLOBIN 11.6 g/dL (13.6-17.8); MEAN CORPUSCULAR HEMOGLOB 38.8 pg (26.0-34.0); MEAN CORPUSCULAR VOLUME 117.4 fL (80-100); PLATELET COUNT 165 10/3/uL (150-400); RBC DISTRIBUTION WIDTH 13.2 % (12.0-16.0); RED CELL COUNT 2.99 10/6/uL (4.7-6.1); WHITE BLOOD CELLS 3.7 10/3/uL (4.5-10.5)
[2017-01-27 05:05] LABS: MANUAL DIFF YES %
[2017-01-27 05:13] LABS: ALBUMIN 1.9 G/DL (3.5-5.0); BUN (BLOOD UREA NITROGEN) 17 MG/DL (6-23); CALCIUM, SERUM 8.4 MG/DL (8.5-10.4); CHLORIDE, SERUM 97 MMOL/L (96-112); CO2 (CARBON DIOXIDE) 31 MMOL/L (24-34); CREATININE 1.11 MG/DL (0.70-1.30); GFR AFRICAN AMERICAN 78 ML/MIN (>=60); GFR NON AFRICAN AMERICAN 67 ML/MIN (>=60); GLUCOSE, SERUM 106 MG/DL (60-99); POTASSIUM, SERUM 4.1 MMOL/L (3.5-5.3); SGOT(AST) 85 U/L (5-40); SGPT(ALT) 84 U/L (5-65); SODIUM, SERUM 139 MMOL/L (135-148); TOTAL BILIRUBIN 0.9 MG/DL (0-1.2)
[2017-01-27 05:15] LABS: A/G RATIO 0.5 (0.7-1.9); ALKALINE PHOSPHATASE 187 U/L (45-117); GLOBULIN 4.1 G/DL (2.5-4.1)
[2017-01-27 07:01] LABS: BAND NEUTROPHILS 2 %; LYMPHOCYTES 3 %; LYMPHOCYTES ABSOLUTE (CALC) 0.11 10/3/uL (0.67-4.30); MONOCYTES 7 %; MONOCYTES ABSOLUTE (CALC) 0.26 10/3/uL (0.21-1.20); NEUTROPHILS ABSOLUTE (CALC) 3.33 10/3/uL (2.02-8.40); PLATELET ESTIMATE ADQ (ADEQUATE); POIKILOCYTOSIS 1+ (5-10/OIF) (0-5/OIF); SEGMENTED NEUTROPHIL (0) 88 %; TOTAL NUCLEATED CELLS 100
[2017-01-27 15:23] LABS: ALLENS TEST Pos; BE (BASE EXCESS) 6.1 MEQ/L (0 +/- 2.5); CARBOXYHEMOGLOBIN 1.4 % (0-3); DEVICE NC; HEMOBLOGIN CONTENT 10.5 G/DL (14-18); INSTRUMENT SERIAL # 8083; O2 CONTENT 13.5 VOL% (18-24); PCO2 (CO2 TENSION) 47 MMHG (35-45); PO2 (O2 TENSION) 62 MMHG (79-93); SAMPLE Arterial; pH 7.44 (7.37-7.43)
[2017-01-27 19:05] LABS: HEMATOCRIT 35.5 % (40.0-51.0); HEMOGLOBIN 11.7 g/dL (13.6-17.8); MEAN CORPUSCULAR HEMOGLOB 37.9 pg (26.0-34.0); MEAN CORPUSCULAR VOLUME 114.9 fL (80-100); MEAN PLATELET VOLUME 10.1 fL (9.2-13.0); PLATELET COUNT 191 10/3/uL (150-400); RBC DISTRIBUTION WIDTH 13.1 % (12.0-16.0); RED CELL COUNT 3.09 10/6/uL (4.7-6.1)
[2017-01-27 19:06] LABS: MANUAL DIFF YES %
[2017-01-27 19:27] LABS: A/G RATIO 0.6 (0.7-1.9); CALCIUM, SERUM 7.7 MG/DL (8.5-10.4); CHLORIDE, SERUM 96 MMOL/L (96-112); CO2 (CARBON DIOXIDE) 33 MMOL/L (24-34); CREATININE 1.04 MG/DL (0.70-1.30); GFR AFRICAN AMERICAN 84 ML/MIN (>=60); GFR NON AFRICAN AMERICAN 72 ML/MIN (>=60); GLOBULIN 3.4 G/DL (2.5-4.1); GLUCOSE, SERUM 120 MG/DL (60-99); SGPT(ALT) 86 U/L (5-65); SODIUM, SERUM 138 MMOL/L (135-148); TOTAL PROTEIN 5.4 G/DL (6.0-8.5)
[2017-01-27 19:31] LABS: ALKALINE PHOSPHATASE 200 U/L (45-117); BUN (BLOOD UREA NITROGEN) 21 MG/DL (6-23); POTASSIUM, SERUM 4.7 MMOL/L (3.5-5.3); SGOT(AST) 123 U/L (5-40); TOTAL BILIRUBIN 1.4 MG/DL (0-1.2)
[2017-01-27 19:34] LABS: GIANT PLATELET RARE; LYMPHOCYTES 4 %; LYMPHOCYTES ABSOLUTE (CALC) 0.16 10/3/uL (0.67-4.30); MONOCYTES 4 %; MONOCYTES ABSOLUTE (CALC) 0.16 10/3/uL (0.21-1.20); NEUTROPHILS ABSOLUTE (CALC) 3.68 10/3/uL (2.02-8.40); PLATELET ESTIMATE ADQ (ADEQUATE); SEGMENTED NEUTROPHIL (0) 92 %; SPHEROCYTES OCC (0-2/OIF); TOTAL NUCLEATED CELLS 100
[2017-01-27 19:35] LABS: OVALOCYTES 1+ (3-10/OIF) (0-2/OIF)
[2017-01-28 08:12] LABS: BASOPHILS 0 %; EOSINOPHILS 0 %; HEMOGLOBIN 11.9 g/dL (13.6-17.8); IMMATURE GRANULOCYTES 0.2 %; IMMATURE GRANULOCYTES ABSOLUTE 0.01 10/3/uL (0.0-0.11); LYMPHOCYTES 8.6 %; LYMPHOCYTES ABSOLUTE 0.36 10/3/uL (0.67-4.30); MEAN CORPUS HGB CONC 33.1 g/dL (32.0-36.0); MEAN CORPUSCULAR HEMOGLOB 37.8 pg (26.0-34.0); MEAN CORPUSCULAR VOLUME 114.3 fL (80-100); MEAN PLATELET VOLUME 10.6 fL (9.2-13.0); MONOCYTES 11.9 %; NEUTROPHILS 79.3 %; NEUTROPHILS ABSOLUTE 3.33 10/3/uL (2.02-8.40); PLATELET COUNT 232 10/3/uL (150-400); RBC DISTRIBUTION WIDTH 12.9 % (12.0-16.0); RED CELL COUNT 3.15 10/6/uL (4.7-6.1); WHITE BLOOD CELLS 4.2 10/3/uL (4.5-10.5)
[2017-01-28 08:18] LABS: MANUAL DIFF NO %
[2017-01-28 08:33] LABS: A/G RATIO 0.4 (0.7-1.9); ALKALINE PHOSPHATASE 175 U/L (45-117); BUN (BLOOD UREA NITROGEN) 20 MG/DL (6-23); CALCIUM, SERUM 8.6 MG/DL (8.5-10.4); CHLORIDE, SERUM 95 MMOL/L (96-112); CO2 (CARBON DIOXIDE) 38 MMOL/L (24-34); CREATININE 1.08 MG/DL (0.70-1.30); DIRECT BILIRUBIN 0.4 MG/DL (0.0-0.4); GFR AFRICAN AMERICAN 80 ML/MIN (>=60); GFR NON AFRICAN AMERICAN 69 ML/MIN (>=60); GLOBULIN 4.5 G/DL (2.5-4.1); GLUCOSE, SERUM 122 MG/DL (60-99); INDIRECT BILIRUBIN(NOT ORDER) 0.6 MG/DL (0.1-0.9); POTASSIUM, SERUM 4.9 MMOL/L (3.5-5.3); SGOT(AST) 54 U/L (5-40); SGPT(ALT) 83 U/L (5-65); SODIUM, SERUM 140 MMOL/L (135-148); TOTAL PROTEIN 6.5 G/DL (6.0-8.5)
[2017-01-28 08:47] LABS: PLATELET ESTIMATE ADQ (ADEQUATE)
[2017-01-28 15:58] LABS: BASOPHILS 0 %; EOSINOPHILS 0 %; HEMATOCRIT 35.8 % (40.0-51.0); IMMATURE GRANULOCYTES 0.6 %; IMMATURE GRANULOCYTES ABSOLUTE 0.03 10/3/uL (0.0-0.11); LYMPHOCYTES 7.1 %; LYMPHOCYTES ABSOLUTE 0.37 10/3/uL (0.67-4.30); MEAN CORPUS HGB CONC 33.5 g/dL (32.0-36.0); MEAN CORPUSCULAR VOLUME 116.2 fL (80-100); MONOCYTES 3.1 %; MONOCYTES ABSOLUTE 0.16 10/3/uL (0.21-1.20); NEUTROPHILS 89.2 %; NEUTROPHILS ABSOLUTE 4.68 10/3/uL (2.02-8.40); PLATELET COUNT 197 10/3/uL (150-400); RED CELL COUNT 3.08 10/6/uL (4.7-6.1); WHITE BLOOD CELLS 5.2 10/3/uL (4.5-10.5)
[2017-01-28 15:59] LABS: MANUAL DIFF NO %
[2017-01-28 16:18] LABS: A/G RATIO 0.5 (0.7-1.9); ALBUMIN 1.9 G/DL (3.5-5.0); BUN (BLOOD UREA NITROGEN) 21 MG/DL (6-23); CALCIUM, SERUM 8.4 MG/DL (8.5-10.4); CHLORIDE, SERUM 94 MMOL/L (96-112); CO2 (CARBON DIOXIDE) 38 MMOL/L (24-34); CREATININE 1.03 MG/DL (0.70-1.30); GFR AFRICAN AMERICAN 85 ML/MIN (>=60); GFR NON AFRICAN AMERICAN 73 ML/MIN (>=60); GLOBULIN 4.2 G/DL (2.5-4.1); GLUCOSE, SERUM 120 MG/DL (60-99); POTASSIUM, SERUM 4.5 MMOL/L (3.5-5.3); SGOT(AST) 46 U/L (5-40); SGPT(ALT) 74 U/L (5-65); SODIUM, SERUM 140 MMOL/L (135-148); TOTAL PROTEIN 6.1 G/DL (6.0-8.5)
[2017-01-28 16:19] LABS: ALKALINE PHOSPHATASE 156 U/L (45-117); TOTAL BILIRUBIN 0.5 MG/DL (0-1.2)
[2017-01-28 17:35] LABS: PLATELET ESTIMATE ADQ (ADEQUATE)
[2017-01-28 17:36] LABS: TEARDROP SHAPED RBCS OCC (0-2/OIF)
[2017-01-29 05:48] LABS: BASOPHILS 0 %; EOSINOPHILS 0 %; HEMATOCRIT 35.1 % (40.0-51.0); HEMOGLOBIN 11.6 g/dL (13.6-17.8); IMMATURE GRANULOCYTES 0.4 %; IMMATURE GRANULOCYTES ABSOLUTE 0.02 10/3/uL (0.0-0.11); LYMPHOCYTES 5.6 %; LYMPHOCYTES ABSOLUTE 0.27 10/3/uL (0.67-4.30); MANUAL DIFF NO %; MEAN CORPUSCULAR HEMOGLOB 38.4 pg (26.0-34.0); MEAN CORPUSCULAR VOLUME 116.2 fL (80-100); MEAN PLATELET VOLUME 10.1 fL (9.2-13.0); MONOCYTES 7.9 %; MONOCYTES ABSOLUTE 0.38 10/3/uL (0.21-1.20); NEUTROPHILS 86.1 %; NEUTROPHILS ABSOLUTE 4.11 10/3/uL (2.02-8.40); PLATELET COUNT 219 10/3/uL (150-400); RBC DISTRIBUTION WIDTH 13.2 % (12.0-16.0); RED CELL COUNT 3.02 10/6/uL (4.7-6.1); WHITE BLOOD CELLS 4.8 10/3/uL (4.5-10.5)
[2017-01-29 06:10] LABS: A/G RATIO 0.5 (0.7-1.9); ALBUMIN 1.8 G/DL (3.5-5.0); BUN (BLOOD UREA NITROGEN) 21 MG/DL (6-23); CALCIUM, SERUM 8.1 MG/DL (8.5-10.4); CHLORIDE, SERUM 97 MMOL/L (96-112); CO2 (CARBON DIOXIDE) 38 MMOL/L (24-34); CREATININE 1.04 MG/DL (0.70-1.30); GFR AFRICAN AMERICAN 84 ML/MIN (>=60); GFR NON AFRICAN AMERICAN 72 ML/MIN (>=60); GLOBULIN 3.9 G/DL (2.5-4.1); GLUCOSE, SERUM 112 MG/DL (60-99); POTASSIUM, SERUM 3.8 MMOL/L (3.5-5.3); SGOT(AST) 35 U/L (5-40); SGPT(ALT) 65 U/L (5-65); SODIUM, SERUM 140 MMOL/L (135-148); TOTAL BILIRUBIN 0.7 MG/DL (0-1.2); TOTAL PROTEIN 5.7 G/DL (6.0-8.5)
[2017-01-29 06:12] LABS: ALKALINE PHOSPHATASE 132 U/L (45-117)
[2017-01-29 06:28] LABS: BAND NEUTROPHILS 1 %; LYMPHOCYTES 8 %; LYMPHOCYTES ABSOLUTE (CALC) 0.38 10/3/uL (0.67-4.30); MONOCYTES 5 %; MONOCYTES ABSOLUTE (CALC) 0.24 10/3/uL (0.21-1.20); NEUTROPHILS ABSOLUTE (CALC) 4.18 10/3/uL (2.02-8.40); POIKILOCYTOSIS 1+ (5-10/OIF) (0-5/OIF); SEGMENTED NEUTROPHIL (0) 86 %; TOTAL NUCLEATED CELLS 100
[2017-01-29 06:30] LABS: PLATELET ESTIMATE ADQ (ADEQUATE)
[2017-01-29] MEDS ORDERED: [UNRECOGNIZED DRUG - OTHER] PO (13:05)
[2017-01-29] MEDS ORDERED: MIRALAX POWDER1 PKT PO (13:07)
[2017-01-29] MEDS ORDERED: CARASPUDL PO (13:08)
[2017-01-29] MEDS ORDERED: APRES25 PO (13:09)
[2017-01-29] MEDS ORDERED: SYMBICORT 160/41 INH INH (13:10)
[2017-01-29] MEDS ORDERED: NORCO1 TA1 PO (13:50)
[2017-01-29] MEDS ORDERED: CREON DR 3,0001 EACH PO (14:26)
[2017-01-29 15:39] LABS: BASOPHILS 0.1 %; BASOPHILS ABSOLUTE 0.01 10/3/uL (0.0-0.16); EOSINOPHILS 0.1 %; EOSINOPHILS ABSOLUTE 0.01 10/3/uL (0.0-0.53); HEMOGLOBIN 13.7 g/dL (13.6-17.8); IMMATURE GRANULOCYTES 0.9 %; IMMATURE GRANULOCYTES ABSOLUTE 0.08 10/3/uL (0.0-0.11); LYMPHOCYTES 2.5 %; LYMPHOCYTES ABSOLUTE 0.22 10/3/uL (0.67-4.30); MEAN CORPUSCULAR HEMOGLOB 40.7 pg (26.0-34.0); MEAN CORPUSCULAR VOLUME 116.6 fL (80-100); MEAN PLATELET VOLUME 9.7 fL (9.2-13.0); MONOCYTES 6.1 %; MONOCYTES ABSOLUTE 0.54 10/3/uL (0.21-1.20); NEUTROPHILS 90.3 %; NEUTROPHILS ABSOLUTE 8.02 10/3/uL (2.02-8.40); PLATELET COUNT 208 10/3/uL (150-400); RBC DISTRIBUTION WIDTH 13.3 % (12.0-16.0); RED CELL COUNT 3.37 10/6/uL (4.7-6.1)
[2017-01-29 15:40] LABS: HEMATOCRIT 39.3 % (40.0-51.0); MANUAL DIFF NO %; MEAN CORPUS HGB CONC 34.9 g/dL (32.0-36.0); WHITE BLOOD CELLS 8.9 10/3/uL (4.5-10.5)
[2017-01-29 15:55] LABS: A/G RATIO 0.5 (0.7-1.9); ALKALINE PHOSPHATASE 131 U/L (45-117); BUN (BLOOD UREA NITROGEN) 19 MG/DL (6-23); CALCIUM, SERUM 8.2 MG/DL (8.5-10.4); CHLORIDE, SERUM 94 MMOL/L (96-112); CO2 (CARBON DIOXIDE) 36 MMOL/L (24-34); CREATININE 1.17 MG/DL (0.70-1.30); GFR AFRICAN AMERICAN 73 ML/MIN (>=60); GFR NON AFRICAN AMERICAN 63 ML/MIN (>=60); GLOBULIN 4.1 G/DL (2.5-4.1); GLUCOSE, SERUM 125 MG/DL (60-99); POTASSIUM, SERUM 3.9 MMOL/L (3.5-5.3); SGOT(AST) 38 U/L (5-40); SGPT(ALT) 63 U/L (5-65); SODIUM, SERUM 138 MMOL/L (135-148); TOTAL BILIRUBIN 0.5 MG/DL (0-1.2); TOTAL PROTEIN 6.1 G/DL (6.0-8.5)
[2017-01-29 16:27] LABS: PLATELET ESTIMATE ADQ (ADEQUATE)
[2017-01-30 06:32] LABS: BASOPHILS 0.1 %; BASOPHILS ABSOLUTE 0.01 10/3/uL (0.0-0.16); EOSINOPHILS 0 %; HEMATOCRIT 35.9 % (40.0-51.0); HEMOGLOBIN 11.8 g/dL (13.6-17.8); IMMATURE GRANULOCYTES 0.6 %; IMMATURE GRANULOCYTES ABSOLUTE 0.04 10/3/uL (0.0-0.11); LYMPHOCYTES 6.8 %; LYMPHOCYTES ABSOLUTE 0.48 10/3/uL (0.67-4.30); MEAN CORPUSCULAR HEMOGLOB 37.3 pg (26.0-34.0); MEAN CORPUSCULAR VOLUME 113.6 fL (80-100); MONOCYTES 5.1 %; MONOCYTES ABSOLUTE 0.36 10/3/uL (0.21-1.20); NEUTROPHILS 87.4 %; NEUTROPHILS ABSOLUTE 6.18 10/3/uL (2.02-8.40); PLATELET COUNT 201 10/3/uL (150-400); RBC DISTRIBUTION WIDTH 13.4 % (12.0-16.0); RED CELL COUNT 3.16 10/6/uL (4.7-6.1); WHITE BLOOD CELLS 7.1 10/3/uL (4.5-10.5)
[2017-01-30 06:35] LABS: A/G RATIO 0.5 (0.7-1.9); ALBUMIN 1.8 G/DL (3.5-5.0); ALKALINE PHOSPHATASE 123 U/L (45-117); BUN (BLOOD UREA NITROGEN) 17 MG/DL (6-23); CALCIUM, SERUM 8.2 MG/DL (8.5-10.4); CHLORIDE, SERUM 97 MMOL/L (96-112); CO2 (CARBON DIOXIDE) 36 MMOL/L (24-34); GFR AFRICAN AMERICAN 78 ML/MIN (>=60); GFR NON AFRICAN AMERICAN 68 ML/MIN (>=60); GLOBULIN 3.8 G/DL (2.5-4.1); GLUCOSE, SERUM 126 MG/DL (60-99); SGOT(AST) 33 U/L (5-40); SGPT(ALT) 47 U/L (5-65); SODIUM, SERUM 138 MMOL/L (135-148); TOTAL BILIRUBIN 0.7 MG/DL (0-1.2); TOTAL PROTEIN 5.6 G/DL (6.0-8.5)
[2017-01-30 06:41] LABS: MANUAL DIFF NO %; MEAN CORPUS HGB CONC 32.9 g/dL (32.0-36.0)
[2017-01-30 07:21] LABS: PLATELET ESTIMATE ADQ (ADEQUATE)
[2017-07-15] MEDS ORDERED: ASAB PO (11:20)
[2017-07-25] MEDS ORDERED: PCET PO (13:45)
[2017-07-25] MEDS ORDERED: SENTAB PO (13:45)
== END 2017-01-30 11:31 | disposition home or self-care (01) | DRG 438 ==
LOC: ER 11:29 → 5SO 13:28 → CCU 01-22 08:41 → 6NO 01-25 02:32
PROVIDERS: Hospitalist; Internal Medicine; Internal Medicine Critical Care Medicine; Internal Medicine Gastroenterology
PROC: 5A09357 Assistance with Respiratory Ventilation, Less than 24 Consecutive Hours, Continuous Positive Airway Pressure (ICD-10-PCS; principal; 2017-01-23)
PROC: 02HV33Z Insertion of Infusion Device into Superior Vena Cava, Percutaneous Approach (ICD-10-PCS; 2017-01-23)
PROC: 4A02X4A Measurement of Cardiac Electrical Activity, Guidance, External Approach (ICD-10-PCS; 2017-01-23)
DX: K85.90 Acute pancreatitis without necrosis or infection, unspecified (principal); J96.22 Acute and chronic respiratory failure with hypercapnia; J96.21 Acute and chronic respiratory failure with hypoxia; N17.9 Acute kidney failure, unspecified; J44.1 Chronic obstructive pulmonary disease with (acute) exacerbation; D45 Polycythemia vera; Z90.49 Acquired absence of other specified parts of digestive tract; K21.9 Gastro-esophageal reflux disease without esophagitis; E66.9 Obesity, unspecified; F41.9 Anxiety disorder, unspecified; M10.9 Gout, unspecified; Z87.891 Personal history of nicotine dependence; Z68.39 Body mass index [BMI] 39.0-39.9, adult; Z72.89 Other problems related to lifestyle
CPT/HCPCS: 36569; 36600; 71010; 73620-RT; 74176; 74181; 80053; 81001; 82150; 82247; 82248; 82330; 82607; 82746; 82805; 82962; 83036; 83605; 83690; 83735; 83880; 84100; 84145; 84153; 84439; 84443; 84550; 85025; 85610; 87040; 87641; 87804; 93005; 94640; 94660; 96365; 96375; 97163-GP; 99285; A9270-GY; C1751; C8929; C9113; G8978-CL-GP; G8979-CJ-GP; J0360; J0610; J1170; J1956; J2405; J2543; J2930; Q9957

== ENCOUNTER 2017-02-27 14:18 | Inpatient (IN) | payer OTHER, MEDICARE ==
--- NOTE | ~2017-02-27 | HP ---
History And Physical [place] [id number] [facility] [place]. [address] NAME: SERGIO ROSARIO : 47 STATUS : ADM IN [facility]#: [id number] AGE: 71 ADM/REG DATE : 02/27/17 MR#: [id number] REPORT SERV DATE: 02/27/17 DICTATED BY: BITA WYNN DATE: 02/27/17 REPORT STATUS : Draft TRANSCRIBED BY: MODL DATE: 02/27/17 DATE OF ADMISSION: 02/27/2017 NEWS ASSISTANT: Dr. Ngo. HISTORY OF PRESENT ILLNESS: This is a 71-year-old male, who comes in for abdominal pain. The patient was recently admitted and discharged from 01/21/2017 to 01/30/2017. During that time, the patient had the following conditions, acute pancreatitis, hypoxic hypercapnic respiratory failure, COPD exacerbation, NATHAN. The patient was worked up for the pancreatitis and they are not exactly sure on what caused it. The patient said that when he got home, he was better, but he still has this on and off abdominal pain and nausea, but he was able to live his life. Occasionally, he will get this abdominal pain. Yesterday, he started having this and it persisted until today, and he vomited brownish phlegm. He believes it is because of the [place] that he drank. There is no trace of blood. There is no melena. There is no coffee-ground emesis or hematemesis. The patient went to the emergency room and they found the lipase to be elevated. They diagnosed the patient with acute pancreatitis and called for admission. The patient denies any fever, chills, or sweats. There are no urinary or bowel changes. He said that he has chronic constipation, the last bowel movement was three days ago. He did not have any near syncopal or syncopal episode. He denies any chest pain or shortness of breath. REVIEW OF SYSTEMS: The 14-point review of system is negative except as above. PAST MEDICAL HISTORY: Includes he had a laparoscopic cholecystectomy on 12/05/2016. Has polycythemia vera, hypertension, COPD on chronic 2 L of oxygen which increases to 3 L on exertion, rheumatoid arthritis but not on any specific rheumatoid arthritis medication, and GERD. He had an appendectomy in 1979. ALLERGIES: HE HAS NO KNOWN DRUG ALLERGIES. MEDICATIONS: Include Tylenol, Symbicort, Tums, vitamin D3, vitamin B12, hydralazine, hydroxyurea, Creon, Prilosec, MiraLAX, Zocor, and Carafate. FAMILY HISTORY: Mom had sudden . Dad had duodenal ulcer. SOCIAL HISTORY: The patient quit smoking six years ago, used to smoke one and a half to two packs a day. He quit drinking alcohol, and that was just social alcohol, a month ago. Denies recreational drug use. PHYSICAL EXAMINATION: GENERAL: The patient is alert and oriented x3, obese, not in cardiopulmonary distress. VITAL SIGNS: Blood pressure was initially at 82/45, went up to 110/60, pulse rate of 94, respirations of 20, saturating 98% on 2 L. NECK: He has supple neck. No JVD or carotid bruits. No lymphadenopathy. HEENT: [place] conjunctivae. Anicteric sclerae. No pharyngeal erythema. History And Physical [address] [address] NAME: SERGIO ROSARIO : 47 STATUS : ADM IN [facility]#: [id number] AGE: 71 ADM/REG DATE : 02/27/17 MR#: [id number] REPORT SERV DATE: 02/27/17 DICTATED BY: BITA WYNN DATE: 02/27/17 REPORT STATUS : Draft TRANSCRIBED BY: MAX DATE: 02/27/17 LUNGS: He has good air entry. Some minimal wheezing, but no crackles or rhonchi. HEART: There is regular rate and rhythm. No murmurs appreciated. ABDOMEN: Positive bowel sounds. Soft. There is mild tenderness in the left upper quadrant area. No rebound, guarding, or masses. EXTREMITIES: Fair pulses. No edema. NEURO: Nonlocalizing. LABORATORY DATA: Reveals basic within normal limits. Total bilirubin of 1.6. Alkaline phosphatase of 140, ALT of 167, AST of 268, lipase of 2056. Troponin is negative. White count of 4.6, H and H of 11.4 and 34.6, MCV of 114.2. Urinalysis shows small bilirubin, 4.0 urobilinogen. ASSESSMENT: 1. Acute and recurrent pancreatitis. 2. Hypotension with history of hypertension. 3. Chronic obstructive pulmonary disease. 4. Polycythemia vera. 5. Obesity. 6. History of rheumatoid arthritis. PLAN: The patient seems to have another bout of pancreatitis. It is concerning why he keeps on getting this. The patient's gallbladder has already been removed and yet, the LFTs are elevated now. Could he have retained stones. He denies any alcohol, but triglyceride has never been checked. I cannot rule out medications as well. We will need to get CT and check for complications such as pseudocyst. We will admit to [facility], hydrate, and monitor the LFTs. Keep on liquids for now and consider MRCP if needed. We will continue his COPD and his polycythemia vera medications. Hold hydralazine as BP is low. Hold Zocor as the patient has elevated LFTs already and can cause pancreatitis as well. This has been explained to the patient and he agreed and understood the plan. HUBERT/MAX Bita Wynn M.D. / [id number] CC: Liliana Gutierrez MD
--- NOTE | ~2017-02-27 | DS ---
Discharge Summary [facility] [address] [place]. [address] NAME: SERGIO ROSARIO : 47 STATUS : ADM IN [facility]#: [id number] AGE: 71 ADM/REG DATE : 02/27/17 MR#: [id number] REPORT SERV DATE: 03/03/17 DICTATED BY: BITA WYNN DATE: 03/03/17 REPORT STATUS : Draft TRANSCRIBED BY: MODL DATE: 03/03/17 ADMISSION DATE: 02/27/2017 DISCHARGE DATE: CONSULTING PHYSICIAN: [facility] as per sheet. OUTPATIENT SURGEON: Dr. Spivey. UROLOGIST: Dr. Hodgson. FINAL DIAGNOSES: 1. Acute recurrent pancreatitis with pseudocyst. 2. Right hydronephrosis secondary to extrinsic compression. 3. Asymptomatic nonsustained ventricular tachycardia. 4. Hypertension. 5. Chronic obstructive pulmonary disease. 6. Polycythemia vera. 7. Status post hypotension. 8. Obesity. 9. History of rheumatoid arthritis. DIAGNOSTIC EXAMS: CT of the abdomen and pelvis showing pancreatitis, heterogeneous complex collections adjacent to the pancreas consistent with phlegmon or developing pseudocyst. More discrete fluid collections present at the anterior margin of the right psoas muscle resulting in ureteral compression and slight right hydronephrosis, right basilar atelectasis, hepatic cyst, bilateral renal cysts not well evaluated without IV contrast, cholecystectomy. MRI of the abdomen showing large peripancreatic fluid collection, probably developing pseudocyst although cannot totally exclude possibility of an abscess, right-sided hydronephrosis, and a CAT scan with more complete coverage demonstrates a fluid collection which can also be seen at the edge of the diagnostic imaging of the right measuring 5.9 x 4.0 cm. This collection is not seen to be contagious with a large peripancreatic collection but suspect this may represent a small locular fluid and debris from recent episode of pancreatitis. This is causing the hydronephrotic changes. HOSPITAL COURSE: Please refer to the H and P done by myself dated on 02/27/2017. Briefly, this is a 71-year-old male who comes in for abdominal pain. The patient was recently admitted and discharged from 01/21 to 01/30. During that time, the patient had acute pancreatitis, hypoxic hypercapnic respiratory failure, COPD exacerbation, and NATHAN. The patient was worked up for pancreatitis and they are not sure exactly what caused it. The patient continued to have on and off abdominal pain and finally decided to come to the emergency room again. The patient then had a CAT scan which shows the above findings. We got an MRI which shows the above findings. The patient was then admitted and we got Surgery involved and they recommended no surgical intervention, repeat the CAT scan in four to six weeks and once the capsule matures of the pseudocyst they might consider some surgical intervention. At present, they wanted conservative management. We got Urology involved and they followed the patient and the creatinine remained stable and they did not want to stand Discharge Summary [place] [id number] [place]. [address] NAME: SERGIO ROSARIO : 47 STATUS : ADM IN [facility]#: [id number] AGE: 71 ADM/REG DATE : 02/27/17 MR#: [id number] REPORT SERV DATE: 03/03/17 DICTATED BY: BITA WYNN DATE: 03/03/17 REPORT STATUS : Draft TRANSCRIBED BY: MODSteve DATE: 03/03/17 the patient as the definitive management is removing the extrinsic compression. They followed the patient and then signed off recommending ultrasound in two weeks and follow up with them and on an outpatient basis. Meanwhile, the patient diet was increased. He continued to tolerate diet. We got Nutrition consulted to teach him on a pancreatic diet. The patient occasionally still has abdominal pain and nausea but not enough to give him narcotics or cause some vomiting. The patient had one episode of nonsustained ventricular tachycardia, but he was asymptomatic at that time. We switched blood pressure medications from hydralazine to low-dose Coreg and the patient did well. Meanwhile, the patient was kept on Telemetry. We did not see any other changes aside from that one 9-beat episode. Echocardiogram that was done on 01/27 was reviewed and it shows a normal left ventricular size and systolic function with EF of 55%, mild diastolic dysfunction. Normal right ventricular size and systolic function. No evidence of apical thrombus with the use of intravenous contrast. No evidence of pericardial effusion. Having explained this to the patient, he understood. He is willing to go home. He will be on the following medications: Tums 500 mg twice a day, hydroxyurea 500 mg twice a day, Creon 48,000 units before meals, Prilosec 40 mg before breakfast, MiraLax 1 packet twice a day, sucralfate 1 g q.a.c. and h.s., Symbicort 2 puffs twice a day, vitamin D 2000 units a day, Tylenol 1000 mg twice a day p.r.n., Coreg 3.125 mg twice a day. The patient will follow up with his PCP, Stalin Judge, in one to two weeks; turn supervisor, Dr. Ngo; Urology, Dr. Hodgson as per his schedule and ultrasound orders, [facility], Dr. Spivey in a month. This has been explained to the patient and he agreed and understood the plan. HUBERT/MAX Bita Wynn M.D. / [id number] CC: Liliana Gutierrez MD
--- NOTE | ~2017-02-27 | CN ---
Consultation Report [facility] [address] [place]. [address] NAME: SERGIO ROSARIO : 47 STATUS : ADM IN [facility]#: [id number] AGE: 71 ADM/REG DATE : 02/27/17 MR#: [id number] REPORT SERV DATE: 02/28/17 DICTATED BY: ALFONSO HODGSON JR. DATE: 02/28/17 REPORT STATUS : Draft TRANSCRIBED BY: MODL DATE: 02/28/17 CONSULT NOTE DATE OF CONSULTATION: 02/28/2017 CHIEF COMPLAINT: Right hydronephrosis. HISTORY OF PRESENT ILLNESS: Mr. Rosario is a 71-year-old gentleman, who has a history of recurrent pancreatitis. He was discharged from the hospital on 01/30/2017 after approximately a 10-day hospital stay for treatment of acute pancreatitis. He was seen by Dr. Abdoul Nair at that time and did not feel that he had any surgical indication at that time. He was home for approximately a month and did reasonably well but continued to have some intermittent abdominal pain. He presented back to the emergency room on 02/27/2017 with again exacerbation of abdominal pain and was found to have elevated pancreatic enzymes once again and felt to have acute pancreatitis along with hypoxic hypercapnic respiratory failure, COPD exacerbation, and acute kidney injury. He was noted on CT scan on admission to have new onset hydronephrosis and the fluid collection around the pancreas had increased significantly in size and was felt to be a pseudocyst. The question at this point is whether or not the pseudocyst needs to be drained percutaneously or surgically. Dr. Nair is currently evaluating the patient for this. There is also the possibility of continued surveillance. The patient's creatinine level is elevated a little bit more than prior admission. His creatinine level has increased to 1.11. His GFR decreased down to 67. On admission on 02/27/2017, his creatinine was 0.97 with a GFR of 79. PAST MEDICAL HISTORY: Significant for cholecystectomy in 12/2016; polycythemia vera; hypertension; COPD 2 L of oxygen at home; rheumatoid arthritis; gastroesophageal reflux disease; and appendectomy in 1979. ALLERGIES: NONE KNOWN. HOME MEDICATIONS: Include Tylenol; Symbicort; Tums; vitamin D3; B12; hydralazine; hydroxyurea; Creon; Prilosec; MiraLAX; Zocor; and Carafate. FAMILY HISTORY: Mother with sudden of unknown cause. Dad with a duodenal ulcer. SOCIAL HISTORY: He quit smoking 6 years ago. He does not drink alcohol apparently or use illicit drugs. REVIEW OF SYSTEMS: 14 system review was performed and was essentially negative other than that stated above. PHYSICAL EXAMINATION: GENERAL: He is a well-nourished, well-developed male, obese, in no acute distress. VITAL SIGNS: Blood pressure is 110/60, pulse of 94, respirations 20, and saturating 98% on Consultation Report [address] [place]. [address] NAME: SERGIO ROSARIO : 47 STATUS : ADM IN [facility]#: [id number] AGE: 71 ADM/REG DATE : 02/27/17 MR#: [id number] REPORT SERV DATE: 02/28/17 DICTATED BY: ALFONSO HODGSON JR. DATE: 02/28/17 REPORT STATUS : Draft TRANSCRIBED BY: MODL DATE: 02/28/17 2 L. NECK: Symmetric. CHEST: Clear to auscultation bilaterally. HEART: Regular rate and rhythm. ABDOMEN: Soft, nondistended, but palpable tenderness over the epigastric area. No flank tenderness noted. EXTREMITIES: Warm without cyanosis, clubbing, or edema. LABORATORY DATA: Creatinine as per the above. Hemoglobin 11.4, hematocrit 34.6. Electrolytes within normal limits. CT scan and MRI were reviewed as per the above. ASSESSMENT: New onset of right hydronephrosis with increasing size of pancreatic pseudocyst. RECOMMENDATIONS: I discussed the case with Dr. Nair and once he decides whether or not he will percutaneously drain, observe, or open drain this pseudocyst. We will make a decision on whether or not to place a stent now versus observe the hydronephrosis. If an open operation is required, I think a stent would be prudent to be placed at the time of surgery for both drainage of the kidney as well as ease of location of the ureter since it is involved in the inflammatory process. I will be in contact with Dr. Nair later today regarding this. WENDY/MAX Alfonso Hodgson Jr., M.D. / [id number] CC: Liliana Gutierrez MD
[~2017-02-27 14:18] MED LIST changes: +ACET500CAP PO; +APRES25 PO; +CARASPUDL PO; +CREON DR 3,0001 EACH PO; +MIRALAX POWDER1 PKT PO; +NAP375 PO; +NORCO1 TA1 PO; +PRILOSEC40 MG PO; +PRINZIDE1 TA1 PO; +SYMBICORT 160/41 INH INH; +TUMSROLL PO; +ZOCOR20 PO; +[UNRECOGNIZED DRUG - OTHER] PO
[2017-02-27 14:23] LABS: BASOPHILS 0 %; EOSINOPHILS 0.7 %; EOSINOPHILS ABSOLUTE 0.03 10/3/uL (0.0-0.53); ER CBC TAT 0 Hrs 02 Mins; HEMATOCRIT 34.6 % (40.0-51.0); HEMOGLOBIN 11.4 g/dL (13.6-17.8); IMMATURE GRANULOCYTES 0.4 %; IMMATURE GRANULOCYTES ABSOLUTE 0.02 10/3/uL (0.0-0.11); LYMPHOCYTES 14.5 %; LYMPHOCYTES ABSOLUTE 0.66 10/3/uL (0.67-4.30); MEAN CORPUS HGB CONC 32.9 g/dL (32.0-36.0); MEAN CORPUSCULAR HEMOGLOB 37.6 pg (26.0-34.0); MEAN CORPUSCULAR VOLUME 114.2 fL (80-100); MEAN PLATELET VOLUME 9.2 fL (9.2-13.0); MONOCYTES 1.5 %; MONOCYTES ABSOLUTE 0.07 10/3/uL (0.21-1.20); NEUTROPHILS 82.9 %; NEUTROPHILS ABSOLUTE 3.77 10/3/uL (2.02-8.40); PLATELET COUNT 157 10/3/uL (150-400); RED CELL COUNT 3.03 10/6/uL (4.7-6.1); WHITE BLOOD CELLS 4.6 10/3/uL (4.5-10.5)
[2017-02-27 14:27] LABS: MANUAL DIFF NO %
[2017-02-27 14:40] LABS: CALCIUM, SERUM 8.2 MG/DL (8.5-10.4); CHLORIDE, SERUM 101 MMOL/L (96-112); CREATININE 0.97 MG/DL (0.70-1.30); GFR AFRICAN AMERICAN 91 ML/MIN (>=60); GFR NON AFRICAN AMERICAN 79 ML/MIN (>=60); POTASSIUM, SERUM 4.7 MMOL/L (3.5-5.3); SGOT(AST) 268 U/L (5-40); SGPT(ALT) 167 U/L (5-65); SODIUM, SERUM 140 MMOL/L (135-148); TOTAL PROTEIN 6.2 G/DL (6.0-8.5); TROPONIN I <0.02 NG/ML (<0.05)
[2017-02-27 14:42] LABS: A/G RATIO 0.8 (0.7-1.9); ALBUMIN 2.7 G/DL (3.5-5.0); ALKALINE PHOSPHATASE 140 U/L (45-117); BUN (BLOOD UREA NITROGEN) 13 MG/DL (6-23); CO2 (CARBON DIOXIDE) 31 MMOL/L (24-34); GLOBULIN 3.5 G/DL (2.5-4.1); GLUCOSE, SERUM 98 MG/DL (60-99); TOTAL BILIRUBIN 1.6 MG/DL (0-1.2)
[2017-02-27 14:43] LABS: OVALOCYTES 1+ (3-10/OIF) (0-2/OIF)
[2017-02-27 15:05] LABS: ASCORBIC ACID (UR NOT ORDER) NEG (NEG); BILIRUBIN, URINE SMALL (NEG); ER URINALYSIS TAT 0 Hrs 11 Mins; KETONE, URINE NEGATIVE (NEG); LEUKOCYTE ESTERASE(NOT OR NEG (NEG); NITRITE (URINE) NEG (NEG); WBC (NOT ORDERED) (RFLEX) 3 (0-5)
[2017-02-27] MEDS ORDERED: TUMSROLL PO (15:47)
[2017-02-27] MEDS ORDERED: VITAMIN D31000 UNIT PO (15:47)
[2017-02-27] MEDS ORDERED: PRILOSEC40 MG PO (15:48)
[2017-02-27] MEDS ORDERED: HYDREA PO (15:48)
[2017-02-27] MEDS ORDERED: ZOCOR20 PO (15:49)
[2017-02-27] MEDS ORDERED: CYANO1000T PO (15:50)
[2017-02-27] MEDS ORDERED: APRES25 PO (15:50)
[2017-02-27] MEDS ORDERED: SYMBICORT 160/41 INH INH (15:50)
[2017-02-27] MEDS ORDERED: SUCR PO (15:51)
[2017-02-27] MEDS ORDERED: MIRALAX POWDER1 PKT PO (15:51)
[2017-02-27] MEDS ORDERED: ACET500CAP PO (15:52)
[2017-02-27 20:31] LABS: CHOL/HDL RATIO(NOT ORDER) 2.3 (0-5)
[2017-02-27 20:32] LABS: PHOSPHORUS, SERUM 2.9 MG/DL (2.5-4.5)
[2017-02-28 06:27] LABS: A/G RATIO 0.7 (0.7-1.9); ALBUMIN 2.8 G/DL (3.5-5.0); ALKALINE PHOSPHATASE 142 U/L (45-117); BUN (BLOOD UREA NITROGEN) 13 MG/DL (6-23); CALCIUM, SERUM 8.7 MG/DL (8.5-10.4); CHLORIDE, SERUM 100 MMOL/L (96-112); CO2 (CARBON DIOXIDE) 30 MMOL/L (24-34); CREATININE 1.11 MG/DL (0.70-1.30); GFR AFRICAN AMERICAN 78 ML/MIN (>=60); GFR NON AFRICAN AMERICAN 67 ML/MIN (>=60); GLOBULIN 3.9 G/DL (2.5-4.1); POTASSIUM, SERUM 4.3 MMOL/L (3.5-5.3); SGOT(AST) 99 U/L (5-40); SGPT(ALT) 153 U/L (5-65); SODIUM, SERUM 137 MMOL/L (135-148); TOTAL PROTEIN 6.7 G/DL (6.0-8.5)
[2017-02-28 06:28] LABS: GLUCOSE, SERUM 122 MG/DL (60-99); TOTAL BILIRUBIN 1.1 MG/DL (0-1.2)
[2017-03-01 06:24] LABS: BASOPHILS 0 %; EOSINOPHILS 0.5 %; EOSINOPHILS ABSOLUTE 0.02 10/3/uL (0.0-0.53); IMMATURE GRANULOCYTES 0.3 %; IMMATURE GRANULOCYTES ABSOLUTE 0.01 10/3/uL (0.0-0.11); LYMPHOCYTES ABSOLUTE 0.89 10/3/uL (0.67-4.30); MEAN CORPUS HGB CONC 32.4 g/dL (32.0-36.0); MEAN CORPUSCULAR HEMOGLOB 37.5 pg (26.0-34.0); MEAN CORPUSCULAR VOLUME 115.8 fL (80-100); MEAN PLATELET VOLUME 9.6 fL (9.2-13.0); MONOCYTES 15.2 %; MONOCYTES ABSOLUTE 0.59 10/3/uL (0.21-1.20); NEUTROPHILS ABSOLUTE 2.36 10/3/uL (2.02-8.40); PLATELET COUNT 116 10/3/uL (150-400); RBC DISTRIBUTION WIDTH 14.2 % (12.0-16.0); WHITE BLOOD CELLS 3.9 10/3/uL (4.5-10.5)
[2017-03-01 06:28] LABS: HEMATOCRIT 27.8 % (40.0-51.0); INTERNATIONAL NORMAL RATI 1.3 UNITS (-); MANUAL DIFF NO %; PROTIME (NOT ORD) 15.6 SEC (12.0-14.5)
[2017-03-01 07:45] LABS: PLATELET ESTIMATE SLT DEC (ADEQUATE)
[2017-03-01 07:46] LABS: TEARDROP SHAPED RBCS OCC (0-2/OIF)
[2017-03-01 09:04] LABS: CALCIUM, SERUM 8.1 MG/DL (8.5-10.4); CHLORIDE, SERUM 106 MMOL/L (96-112); CO2 (CARBON DIOXIDE) 32 MMOL/L (24-34); CREATININE 0.91 MG/DL (0.70-1.30); GFR AFRICAN AMERICAN 99 ML/MIN (>=60); GFR NON AFRICAN AMERICAN 85 ML/MIN (>=60); GLUCOSE, SERUM 108 MG/DL (60-99); POTASSIUM, SERUM 4.1 MMOL/L (3.5-5.3); SGOT(AST) 28 U/L (5-40); SGPT(ALT) 79 U/L (5-65); SODIUM, SERUM 143 MMOL/L (135-148); TOTAL BILIRUBIN 0.7 MG/DL (0-1.2); TOTAL PROTEIN 5.6 G/DL (6.0-8.5)
[2017-03-01 09:06] LABS: A/G RATIO 0.6 (0.7-1.9); ALBUMIN 2.2 G/DL (3.5-5.0); ALKALINE PHOSPHATASE 92 U/L (45-117); BUN (BLOOD UREA NITROGEN) 9 MG/DL (6-23); GLOBULIN 3.4 G/DL (2.5-4.1)
[2017-03-02 05:19] LABS: BASOPHILS 0 %; EOSINOPHILS 1.4 %; EOSINOPHILS ABSOLUTE 0.05 10/3/uL (0.0-0.53); HEMATOCRIT 29.1 % (40.0-51.0); HEMOGLOBIN 9.6 g/dL (13.6-17.8); IMMATURE GRANULOCYTES 0.3 %; IMMATURE GRANULOCYTES ABSOLUTE 0.01 10/3/uL (0.0-0.11); LYMPHOCYTES 17.8 %; LYMPHOCYTES ABSOLUTE 0.62 10/3/uL (0.67-4.30); MEAN CORPUSCULAR HEMOGLOB 37.9 pg (26.0-34.0); MEAN PLATELET VOLUME 9.6 fL (9.2-13.0); MONOCYTES 13.2 %; MONOCYTES ABSOLUTE 0.46 10/3/uL (0.21-1.20); NEUTROPHILS 67.3 %; NEUTROPHILS ABSOLUTE 2.35 10/3/uL (2.02-8.40); PLATELET COUNT 119 10/3/uL (150-400); RBC DISTRIBUTION WIDTH 14.1 % (12.0-16.0); RED CELL COUNT 2.53 10/6/uL (4.7-6.1); WHITE BLOOD CELLS 3.5 10/3/uL (4.5-10.5)
[2017-03-02 05:20] LABS: MANUAL DIFF NO %
[2017-03-02 05:32] LABS: A/G RATIO 0.6 (0.7-1.9); ALBUMIN 2.3 G/DL (3.5-5.0); ALKALINE PHOSPHATASE 86 U/L (45-117); BUN (BLOOD UREA NITROGEN) 8 MG/DL (6-23); CALCIUM, SERUM 8.6 MG/DL (8.5-10.4); CHLORIDE, SERUM 102 MMOL/L (96-112); CO2 (CARBON DIOXIDE) 33 MMOL/L (24-34); CREATININE 0.81 MG/DL (0.70-1.30); GFR AFRICAN AMERICAN 104 ML/MIN (>=60); GFR NON AFRICAN AMERICAN 90 ML/MIN (>=60); GLOBULIN 3.8 G/DL (2.5-4.1); GLUCOSE, SERUM 95 MG/DL (60-99); POTASSIUM, SERUM 4.4 MMOL/L (3.5-5.3); SGOT(AST) 18 U/L (5-40); SGPT(ALT) 55 U/L (5-65); SODIUM, SERUM 142 MMOL/L (135-148); TOTAL PROTEIN 6.1 G/DL (6.0-8.5)
[2017-03-02 05:38] LABS: PLATELET ESTIMATE SLT DEC (ADEQUATE)
[2017-03-02 05:39] LABS: POLYCHROMASIA 1+ (2-5/OIF) (0-1/OIF)
[2017-03-03 05:19] LABS: BASOPHILS 0.4 %; BASOPHILS ABSOLUTE 0.01 10/3/uL (0.0-0.16); EOSINOPHILS 3.4 %; EOSINOPHILS ABSOLUTE 0.09 10/3/uL (0.0-0.53); HEMATOCRIT 26.8 % (40.0-51.0); HEMOGLOBIN 8.8 g/dL (13.6-17.8); IMMATURE GRANULOCYTES 0.4 %; IMMATURE GRANULOCYTES ABSOLUTE 0.01 10/3/uL (0.0-0.11); LYMPHOCYTES ABSOLUTE 0.64 10/3/uL (0.67-4.30); MEAN CORPUS HGB CONC 32.8 g/dL (32.0-36.0); MEAN CORPUSCULAR HEMOGLOB 37.6 pg (26.0-34.0); MEAN CORPUSCULAR VOLUME 114.5 fL (80-100); MEAN PLATELET VOLUME 9.1 fL (9.2-13.0); NEUTROPHILS 56.8 %; NEUTROPHILS ABSOLUTE 1.52 10/3/uL (2.02-8.40); PLATELET COUNT 121 10/3/uL (150-400); RBC DISTRIBUTION WIDTH 14.3 % (12.0-16.0); RED CELL COUNT 2.34 10/6/uL (4.7-6.1); WHITE BLOOD CELLS 2.7 10/3/uL (4.5-10.5)
[2017-03-03 05:30] LABS: BUN (BLOOD UREA NITROGEN) 10 MG/DL (6-23); CALCIUM, SERUM 8.6 MG/DL (8.5-10.4); CHLORIDE, SERUM 102 MMOL/L (96-112); CO2 (CARBON DIOXIDE) 34 MMOL/L (24-34); CREATININE 0.83 MG/DL (0.70-1.30); GFR AFRICAN AMERICAN 103 ML/MIN (>=60); GFR NON AFRICAN AMERICAN 89 ML/MIN (>=60); GLUCOSE, SERUM 91 MG/DL (60-99); SODIUM, SERUM 141 MMOL/L (135-148)
[2017-03-03 05:47] LABS: MANUAL DIFF NO %
[2017-03-03 06:54] LABS: PLATELET ESTIMATE DEC (ADEQUATE)
[2017-03-03 06:56] LABS: STOMATOCYTES 1+ (3-10/OIF) (0-2/OIF)
[2017-03-03] MEDS ORDERED: COREG3 PO (08:03)
[2017-07-15] MEDS ORDERED: ASAB PO (11:20)
[2017-07-25] MEDS ORDERED: PCET PO (13:45)
[2017-07-25] MEDS ORDERED: SENTAB PO (13:45)
== END 2017-03-03 11:08 | disposition home or self-care (01) | DRG 439 ==
LOC: ER 14:18 → 4SO 17:16
PROVIDERS: Internal Medicine; Physician Assistant
DX: K85.80 Other acute pancreatitis without necrosis or infection (principal); K86.3 Pseudocyst of pancreas; I47.2 Ventricular tachycardia; I95.89 Other hypotension; J44.9 Chronic obstructive pulmonary disease, unspecified; Z99.81 Dependence on supplemental oxygen; N13.39 Other hydronephrosis; K85.90 Acute pancreatitis without necrosis or infection, unspecified; K59.00 Constipation, unspecified; D45 Polycythemia vera; I10 Essential (primary) hypertension; M06.9 Rheumatoid arthritis, unspecified; K21.9 Gastro-esophageal reflux disease without esophagitis; Z79.51 Long term (current) use of inhaled steroids; Z87.891 Personal history of nicotine dependence; K86.1 Other chronic pancreatitis; E66.9 Obesity, unspecified; Z68.35 Body mass index [BMI] 35.0-35.9, adult; Z90.49 Acquired absence of other specified parts of digestive tract
CPT/HCPCS: 74176; 80048; 80053; 80061; 81001; 83690; 83735; 84100; 84484; 85025; 85610; 85730; 94640; 96374; 99285; A9270-GY; C8901; J2405